=== PATIENT | female | born 1955 | race Caucasian/White ===

== ENCOUNTER 2021-02-17 12:40 | Outpatient (REF) | payer MEDICARE, MEDICAID, SELFPAY ==
[2021-02-17 13:55] LABS: MANUAL DIFF FLAG NO
[2021-02-17 14:01] LABS: Basophils Percent Auto 0.3 % (0-2); Eosinophils Absolute Auto 0.1 X10*3/uL (0.0-0.4); Hematocrit 43.5 % (37-47); Hemoglobin 14.9 g/dl (12.0-16.0); Imm Gran Abs Auto 0.04 X10*3/uL (0.00-0.03); Imm Gran Pct Auto 0.4 % (0.0-0.4); Lymphocytes Absolute Auto 1.6 X10*3/uL (1.2-4.9); Lymphocytes Percent Auto 14.1 % (20-40); Mean Corpuscular HGB Conc 34.3 g/dl (31.0-35.0); Mean Corpuscular Volume 90.4 fL (80-98); Monocytes Absolute Auto 0.7 X10*3/uL (0.1-1.2); Neutrophils Absolute Auto 8.6 X10*3/uL (2.0-8.3); Neutrophils Percent Auto 78.2 % (45-73); Platelet Count 331 X10*3/uL (160-400); Red Blood Count 4.81 X10*6/uL (4.20-5.50); Red Cell Distribution Width 13.8 % (11.0-16.0)
[2021-02-17 14:38] LABS: Alanine Aminotransferase 17 U/L (0-31); Albumin Level 4.2 g/dL (3.5-5.0); Alkaline Phosphatase 96 U/L (39-117); Anion Gap 13 (12-20); Aspartate Amino Transferase 17 U/L (5-31); Bilirubin Total 0.4 mg/dL (0.0-1.0); Blood Urea Nitrogen 19 mg/dL (9-16); Calcium 10.2 mg/dL (8.4-10.2); Carbon Dioxide 26 mmol/L (22-29); Chloride 106 mmol/L (96-108); Cholesterol 231 mg/dL; Estimated Average Glucose 131 mg/dL; Estimated Glomerular Filt Rate > 60; Glucose Random 87 mg/dL (60-115); HDL Cholesterol 56 mg/dL; Hemoglobin A1c % 6.2 %; LDL Cholesterol Calculated 144 mg/dl; Potassium 4.3 mmol/L (3.3-5.1); Sodium 141 mmol/L (135-145); Total Protein 6.9 g/dL (6.5-8.0); Triglycerides 158 mg/dL
[2021-02-17 14:43] LABS: Creatinine Urine 104.04 mg/dL; Microalbum/Creatinine Ratio Ur 29.7 ug/mg cr
[2021-02-18 10:11] LABS: LDL Cholesterol Direct 154 mg/dL (<100)
== END 2021-02-17 12:41 | disposition home or self-care (01) ==
LOC: HO.HMGCLDS 12:40
PROVIDERS: Internal Medicine; PCP Internal Medicine; Visit Provider Internal Medicine
DX: E11.40 Type 2 diabetes mellitus with diabetic neuropathy, unspecified (principal); E11.65 Type 2 diabetes mellitus with hyperglycemia; I10 Essential (primary) hypertension; J44.9 Chronic obstructive pulmonary disease, unspecified; K21.9 Gastro-esophageal reflux disease without esophagitis; Z99.81 Dependence on supplemental oxygen; Z79.4 Long term (current) use of insulin
CPT/HCPCS: 36415; 80053; 80061; 82043; 83036; 83721; 84443; 85025

== ENCOUNTER → 2021-08-04 11:45 | Outpatient (BNVA) | payer MEDICARE, MEDICAID, SELFPAY | PROVIDERS: PCP Internal Medicine; Visit Provider Internal Medicine | DX: E11.65 Type 2 diabetes mellitus with hyperglycemia (principal); E78.5 Hyperlipidemia, unspecified; I10 Essential (primary) hypertension; Z79.4 Long term (current) use of insulin | CPT/HCPCS: Q3014 ==

== ENCOUNTER 2022-01-11 14:28 | Outpatient (REF) | payer MEDICARE, MEDICAID, SELFPAY ==
[2022-01-11 16:49] LABS: Alanine Aminotransferase 17 U/L (0-31); Albumin Level 4.2 g/dL (3.5-5.0); Alkaline Phosphatase 106 U/L (39-117); Anion Gap 14 (12-20); Aspartate Amino Transferase 16 U/L (5-31); Bilirubin Total 0.4 mg/dL (0.0-1.0); Blood Urea Nitrogen 30 mg/dL (9-16); Calcium 9.7 mg/dL (8.4-10.2); Carbon Dioxide 24 mmol/L (22-29); Chloride 107 mmol/L (96-108); Cholesterol 232 mg/dL; Estimated Glomerular Filt Rate > 60; Glucose Random 108 mg/dL (60-115); HDL Cholesterol 52 mg/dL; LDL Cholesterol Calculated 132 mg/dl; Potassium 4.3 mmol/L (3.3-5.1); Sodium 141 mmol/L (135-145); Triglycerides 240 mg/dL
[2022-01-11 16:54] LABS: Estimated Average Glucose 117 mg/dL; Hemoglobin A1C 151.8127 umol/L; Hemoglobin A1c % 5.7 %
[2022-01-11 17:10] LABS: Vitamin D 25-OH Total 32.4 ng/mL (>30)
[2022-01-11 17:31] LABS: Creatinine Urine 74.16 mg/dL; Microalbum/Creatinine Ratio Ur 63.3 ug/mg cr
[2022-01-13 00:31] LABS: LDL Cholesterol Direct 152 mg/dL (<100)
== END 2022-01-11 14:29 | disposition home or self-care (01) ==
LOC: HO.HMGCLDS 14:28
PROVIDERS: PCP Internal Medicine; Visit Provider Internal Medicine
DX: E11.65 Type 2 diabetes mellitus with hyperglycemia (principal); E55.9 Vitamin D deficiency, unspecified; Z79.4 Long term (current) use of insulin
CPT/HCPCS: 36415; 80053; 80061; 82043; 82306; 83036; 83721

== ENCOUNTER → 2022-01-12 12:14 | Outpatient (BNVA) | payer MEDICARE, MEDICAID, SELFPAY | PROVIDERS: PCP Internal Medicine; Visit Provider Internal Medicine | DX: E11.65 Type 2 diabetes mellitus with hyperglycemia (principal); E78.5 Hyperlipidemia, unspecified; I10 Essential (primary) hypertension; Z79.4 Long term (current) use of insulin; Z79.899 Other long term (current) drug therapy | CPT/HCPCS: Q3014 ==

== ENCOUNTER → 2022-03-21 10:19 | Outpatient (BNVA) | payer MEDICARE, MEDICAID, SELFPAY | PROVIDERS: PCP Internal Medicine; Visit Provider Internal Medicine | DX: E11.65 Type 2 diabetes mellitus with hyperglycemia (principal); Z79.4 Long term (current) use of insulin; E78.5 Hyperlipidemia, unspecified; I10 Essential (primary) hypertension | CPT/HCPCS: Q3014 ==

== ENCOUNTER 2022-06-01 14:39 | Outpatient (REF) | payer MEDICARE, MEDICAID, SELFPAY ==
[2022-06-01 16:28] LABS: MANUAL DIFF FLAG NO
[2022-06-01 16:32] LABS: Basophils Absolute Auto 0.1 X10*3/uL (0.0-0.2); Basophils Percent Auto 0.6 % (0-2); Eosinophils Absolute Auto 0.2 X10*3/uL (0.0-0.4); Hematocrit 45.3 % (37.0-47.0); Hemoglobin 15.3 g/dl (12.0-16.0); Imm Gran Abs Auto 0.04 X10*3/uL (0.00-0.03); Imm Gran Pct Auto 0.4 % (0.0-0.4); Lymphocytes Absolute Auto 1.8 X10*3/uL (1.2-4.9); Lymphocytes Percent Auto 17.3 % (20-40); Mean Corpuscular HGB Conc 33.8 g/dl (31.0-35.0); Mean Corpuscular Hemoglobin 30.4 pg (27.0-33.0); Mean Corpuscular Volume 90.1 fL (80.0-98.0); Mean Platelet Volume 10.3 fL (9.4-12.3); Monocytes Absolute Auto 0.6 X10*3/uL (0.1-1.2); Monocytes Percent Auto 5.6 % (2-11); Neutrophils Absolute Auto 7.5 x10*3/uL (2.0-8.3); Neutrophils Percent Auto 74.1 % (45-73); Platelet Count 300 X10*3/uL (160-400); Red Blood Count 5.03 X10*6/uL (4.20-5.50); White Blood Count 10.2 X10*3/uL (4.8-10.8)
[2022-06-01 16:40] LABS: Estimated Average Glucose 111 mg/dL; Hemoglobin A1c % 5.5 %
[2022-06-01 16:44] LABS: Alanine Aminotransferase 21 U/L (0-31); Albumin Level 4.4 g/dL (3.5-5.0); Alkaline Phosphatase 106 U/L (39-117); Anion Gap 13 (12-20); Aspartate Amino Transferase 24 U/L (5-31); Bilirubin Total 0.4 mg/dL (0.0-1.0); Blood Urea Nitrogen 21 mg/dL (9-16); Calcium 10.2 mg/dL (8.4-10.2); Carbon Dioxide 30 mmol/L (22-29); Chloride 107 mmol/L (96-108); Estimated Glomerular Filt Rate > 60; Glucose Random 118 mg/dL (60-115); Potassium 4.7 mmol/L (3.3-5.1); Sodium 145 mmol/L (135-145); Total Protein 7.2 g/dL (6.5-8.0)
[2022-06-01 17:04] LABS: TSH reflex Free T4 1.32 uIU/mL (0.32-4.0)
[2022-06-02 17:17] LABS: LDL Cholesterol Direct 107 mg/dL (<100)
== END 2022-06-01 14:40 | disposition home or self-care (01) ==
LOC: HO.HMGCLDS 14:39
PROVIDERS: PCP Internal Medicine; Visit Provider Internal Medicine
DX: E11.40 Type 2 diabetes mellitus with diabetic neuropathy, unspecified (principal); E78.5 Hyperlipidemia, unspecified; F33.9 Major depressive disorder, recurrent, unspecified; I10 Essential (primary) hypertension; J44.9 Chronic obstructive pulmonary disease, unspecified; K21.9 Gastro-esophageal reflux disease without esophagitis; Z91.09 Other allergy status, other than to drugs and biological substances
CPT/HCPCS: 36415; 80053; 83036; 83721; 84443; 85025

== ENCOUNTER 2023-03-01 13:48 | Outpatient (AMB) | payer MEDICARE, MEDICAID, SELFPAY ==
--- NOTE | 2023-03-01 14:00 | A.OFFPC_ITS ---
Vital Signs 03/01/23 14:01 Height 5 ft Weight 146 lb BMI 28.5 BP 102/60 Blood Pressure Location Rt brachial Position Sitting Pulse 69 Pulse Source Pulse Oximeter Pulse Oximetry (%) 95 Oxygen Delivery Method Room Air Intake Visit Reasons: follow up DM Allergies lisinopril Allergy (Unknown, Verified 03/01/23 14:02) cough pravastatin Allergy (Unknown, Verified 03/01/23 14:02) muscle ache simvastatin Allergy (Unknown, Verified 03/01/23 14:02) myalgia Medication List - Last Reconciled 03/01/23 by Isabela Bautista MD aripiprazole 2 mg PO BEDTIME atorvastatin 40 mg PO DAILY blood sugar diagnostic (FreeStyle Lite Strips) patient to check fasting glucose three times daily bupropion HCl 150 mg PO BID carvedilol 12.5 mg PO BID 30 days fluticasone propionate 50 mcg/actuation (Allergy Relief (fluticasone)) 1 spray intranasal DAILY 30 days insulin degludec (Tresiba FlexTouch U-200 insulin) 50 units (0.25 mL) subcut DAILY ipratropium bromide 2 sprays intranasal TID-QID PRN 30 days losartan 50 mg PO DAILY 90 days multivitamin 1 tab PO DAILY omeprazole 20 mg PO DAILY 90 days pen needle, diabetic (BD Sarina 2nd Gen Pen Needle) once a day pen needle, diabetic once a day pregabalin 225 mg PO BID 30 days sertraline 100 mg PO QAM Tobacco use date assessed: 03/01/23 Fall risk assessment: No Falls in past year Last assessed Fall Risk: 03/01/23 Dental Screening Dental Screen Date: 03/01/23 Did you have a dental visit in the last 12 months?: No Was dental information given to patient?: No HPI follow up DM HPI Details Patient is 68-year-old female came in today for her follow-up appointment last time seen was September of this year patient was supposed to come in in 3 months but did not No labs on file since 2021 I have placed an order for her she is to do them today. Complaining of feeling dizzy when she wakes up in the morning and if she moves fast I have sent meclizine 12.5 mg that she can take b.i.d. She has an appointment with Dr. Sharma endocrinology May 02 for the management of uncontrolled diabetes mellitus? Patient has COPD but her breathing is at baseline Blood pressure is stable with losartan 50 mg and carvedilol 12.5 mg b.i.d., Psychiatric care through Psychiatry Patient is on atorvastatin 40 mg daily for lipid control Fibromyalgia and diabetic neuropathy, patient is on Lyrica 225 mg 2 times a day, patient was notified this is a controlled medication and will need 3 month follow-up visit for refill Patient is walker dependent Follow-up 3 months ? ?? PFSH Medical History Chronic GERD COPD, severe Depression, major, recurrent Diabetic neuropathy Environmental allergies History of pancreatitis HLD (hyperlipidemia) HTN (hypertension) Osteopenia T2DM (type 2 diabetes mellitus) Vitamin D deficiency Surgical History Hx of hysterectomy Family History Mother CVA (cerebral vascular accident) T2DM (type 2 diabetes mellitus) Father No problems noted. Brother No problems noted. Brother No problems noted. Brother No problems noted. Sister No problems noted. Sister No problems noted. Sister No problems noted. Sister No problems noted. Daughter No problems noted. Daughter No problems noted. Social History Housing: Apartment Alcohol intake: former Patient Tobacco Use Status: Former Tobacco user Cigarette Packs Per Day: 1 Years Smoked: 40 e-Cigarette/Vaping Use: Never Used service: No Current occupational status: retired Cognitive needs: No Hearing needs: No Vision needs: Yes Questionnaire PHQ-9 Over the last 2 weeks, how often have you been bothered by any of the following problems? 1. Little interest or pleasure in doing things: several days 2. Feeling down, depressed, or hopeless: several days 3. Trouble falling or staying asleep, or sleeping too much: several days 4. Feeling tired or having little energy: several days 5. Poor appetite or overeating: several days 6. Feeling bad about yourself - or that you are a failure or have let yourself or your family down: not at all 7. Trouble concentrating on things, such as reading the newspaper or watching television: several days 8. Moving or speaking so slowly that other people could have noticed. Or the opposite - being so fidgety or restless that you have been moving around a lot more than usual: several days 9. Thoughts that you would be better off or of hurting yourself in some way: not at all Total score: 7 Depression Screening Interpretation: Positive 52110 - PHQ-9 Billing: Yes Source: Developed by Drs. Nael Connelly, Jade Hinojosa, Lance Lizarraga and colleagues, with an educational kush from [employer]. Thrive Questionnaire Date Thrive assessed: 03/01/23 I am a: Patient What is your living situation today?: I have a steady place to live Within the past 12 months, did the food you bought not last and you didn't have the money to get more?: Never true Within the past 12 months, did you worry whether your food would run out before you got money to buy more?: Never true Do you have trouble paying for medicines?: No Do you have trouble getting transportation to medical appointments?: No Do you have trouble paying your heating and electricity bill?: No Do you have trouble taking care of your child, family member or friend?: No Do you have trouble with day-to-day activities such as bathing, preparing meals, shopping, managing finances, etc.?: No Are you currently unemployed and looking for a job?: No Are you interested in more education?: No VIRGILIO-7 AMB Questionnaire VIRGILIO-7 Date VIRGILIO - 7 assessed: 03/01/23 Feeling nervous, anxious, or on edge: 1 = Several days Not being able to stop or control worryin = Several days Worrying too much about different things: 0 = Not at all Trouble relaxin = Several days Being so restless that it is hard to sit still: 1 = Several days Becoming easily annoyed or irritable: 1 = Several days Feeling afraid as if something awful might happen: 0 = Not at all Total VIRGILIO-7 score (0-4 normal; 5-9 mild; 10-14 moderate; 15-21 severe): 5 Source: Developed by Drs. Nael Connelly, Jade Hinojosa, Lance Lizarraga and colleagues, with an educational kush from [employer]. Review of Systems Const Denies chills and Denies fever(s) ENT Denies epistaxis and Denies nasal discharge Card Denies chest pain Resp Denies chest congestion, Denies cough and Denies hemoptysis GI Denies diarrhea and Denies nausea Skin/Breast Denies rash Neuro Reports no additional complaints Psych Reports no additional complaints Endo Reports no additional complaints Physical exam (Primary Care) Vital Signs: Last Vital Signs Pulse 69 03/01/23 14:01 BP 102/60 03/01/23 14:01 Pulse Ox 95 03/01/23 14:01 Oxygen Delivery Method Room Air 03/01/23 14:01 BMI result Body Mass Index 28.5 Tobacco/Smoking Status: Tobacco use Status Tobacco use date assessed 03/01/23 03/01/23 14:07 Patient Tobacco Use Status Former Tobacco user 03/01/23 14:01 e-Cigarette/Vaping Use Never Used 03/01/23 14:01 PHQ-9: PHQ-9 Score PHQ-9: Total score 7 03/01/23 14:08 Depression Screening Interpretation: Positive Thrive Assessment: Date of Thrive Assessment Date Thrive assessed 03/01/23 03/01/23 14:07 Const General: cooperative, comfortable and no acute distress Orientation/consciousness: patient oriented x3 HENMT Head: Yes normocephalic Eyes General: appearance normal, both eyes and all related structures Neck Neck: Yes supple Resp Effort & Inspection: normal respiratory effort, no cough and no stridor Cardio Rhythm: regular rhythm Heart sounds: S1 normal heart sound present and S2 normal heart sound present Skin General skin exam: turgor normal Neuro Other: Walker dependent General: patient oriented x3, tone normal and moves all extremities Extrem Right lower extremity: no edema Left lower extremity: no edema Assessment and Plan Assessment & Plan (1) T2DM (type 2 diabetes mellitus): Code(s): E11.9 - Type 2 diabetes mellitus without complications Qualifiers: Diabetes mellitus complication status: with hyperglycemia Diabetes mellitus continuous churn buttermaker insulin use: with continuous churn buttermaker use Qualified Code(s): E11.65 - Type 2 diabetes mellitus with hyperglycemia; Z79.4 - USP (current) use of insulin (2) HTN (hypertension): Code(s): I10 - Essential (primary) hypertension Qualifiers: Hypertension type: primary hypertension Qualified Code(s): I10 - Essential (primary) hypertension (3) COPD, severe: Code(s): J44.9 - Chronic obstructive pulmonary disease, unspecified (4) Diabetic neuropathy: Code(s): E11.40 - Type 2 diabetes mellitus with diabetic neuropathy, unspecified Qualifiers: Diabetes mellitus complication detail: diabetic polyneuropathy Diabetes mellitus type: type 1 Qualified Code(s): E10.42 - Type 1 diabetes mellitus with diabetic polyneuropathy (5) Chronic GERD: Code(s): K21.9 - Gastro-esophageal reflux disease without esophagitis (6) Depression, major, recurrent: Code(s): F33.9 - Major depressive disorder, recurrent, unspecified Plan Patient is 68-year-old female came in today for her follow-up appointment last time seen was September of this year patient was supposed to come in in 3 months but did not No labs on file since 2021 I have placed an order for her she is to do them today. Complaining of feeling dizzy when she wakes up in the morning and if she moves fast I have sent meclizine 12.5 mg that she can take b.i.d. She has an appointment with Dr. Sharma endocrinology May 02 for the manage ment of uncontrolled diabetes mellitus? Patient has COPD but her breathing is at baseline Blood pressure is stable with losartan 50 mg and carvedilol 12.5 mg b.i.d., Psychiatric care through Psychiatry Patient is on atorvastatin 40 mg daily for lipid control Fibromyalgia and diabetic neuropathy, patient is on Lyrica 225 mg 2 times a day, patient was notified this is a controlled medication and will need 3 month follow-up visit for refill Patient is walker dependent Follow-up 3 months ? ?? Orders: Orders Comprehensive Met. Panel Today E11.40 - Type 2 diabetes mellitus with diabetic neuropathy, unspecified, E11.9 - Type 2 diabetes mellitus without complications, F33.9 - Major depressive disorder, recurrent, unspecified, I10 - Essential (primary) hypertension, J44.9 - Chronic obstructive pulmonary disease, unspecified, K21.9 - Gastro-esophageal reflux disease without esophagitis Hemoglobin A1c Today E11.40 - Type 2 diabetes mellitus with diabetic neuropathy, unspecified, E11.9 - Type 2 diabetes mellitus without complications, F33.9 - Major depressive disorder, recurrent, unspecified, I10 - Essential (primary) hypertension, J44.9 - Chronic obstructive pulmonary disease, unspecified, K21.9 - Gastro-esophageal reflux disease without esophagitis LDL Cholesterol Direct Today E11.40 - Type 2 diabetes mellitus with diabetic neuropathy, unspecified, E11.9 - Type 2 diabetes mellitus without complications, F33.9 - Major depressive disorder, recurrent, unspecified, I10 - Essential (primary) hypertension, J44.9 - Chronic obstructive pulmonary disease, unspecified, K21.9 - Gastro-esophageal reflux disease without esophagitis TSH reflex Free T4 Today E11.40 - Type 2 diabetes mellitus with diabetic neuropathy, unspecified, E11.9 - Type 2 diabetes mellitus without complications, F33.9 - Major depressive disorder, recurrent, unspecified, I10 - Essential (primary) hypertension, J44.9 - Chronic obstructive pulmonary disease, unspecified, K21.9 - Gastro-esophageal reflux disease without esophagitis Complete Blood Count Auto Diff Today E11.40 - Type 2 diabetes mellitus with diabetic neuropathy, unspecified, E11.9 - Type 2 diabetes mellitus without complications, F33.9 - Major depressive disorder, recurrent, unspecified, I10 - Essential (primary) hypertension, J44.9 - Chronic obstructive pulmonary disease, unspecified, K21.9 - Gastro-esophageal reflux disease without esophagitis Medications: New meclizine After breakfast and after supper 12.5 mg PO BID PRN 30 tabs 0RF dizziness 15 days Coding Level of Care Code Est Pt Level 4 (91340) Diagnoses T2DM (type 2 diabetes mellitus) E11.65; Z79.4 Diabetes mellitus complication status: with hyperglycemia Diabetes mellitus continuous churn buttermaker insulin use: with continuous churn buttermaker use HTN (hypertension) I10 Hypertension type: primary hypertension COPD, severe J44.9 Diabetic neuropathy E10.42 Diabetes mellitus complication detail: diabetic polyneuropathy Diabetes mellitus type: type 1 Chronic GERD K21.9 Depression, major, recurrent F33.9
[2023-03-01 14:01] VITALS: BP 102/60; PULSE 69; O2SAT 95; BMI 28.5
== END 2023-03-01 14:35 | disposition home or self-care (01) ==
PROVIDERS: PCP Internal Medicine; Visit Provider Internal Medicine
DX: E11.65 Type 2 diabetes mellitus with hyperglycemia (principal); Z79.4 Long term (current) use of insulin; I10 Essential (primary) hypertension; J44.9 Chronic obstructive pulmonary disease, unspecified; E10.42 Type 1 diabetes mellitus with diabetic polyneuropathy; K21.9 Gastro-esophageal reflux disease without esophagitis; F33.9 Major depressive disorder, recurrent, unspecified
CPT/HCPCS: 99214

== ENCOUNTER 2023-03-01 14:32 | Outpatient (REF) | payer MEDICARE, MEDICAID, SELFPAY ==
[2023-03-01 16:14] LABS: Basophils Percent Auto 0.4 % (0-2); Eosinophils Absolute Auto 0.1 X10*3/uL (0.0-0.4); Eosinophils Percent Auto 1.5 % (0-4); Hematocrit 43.4 % (37.0-47.0); Hemoglobin 14.7 g/dl (12.0-16.0); Imm Gran Abs Auto 0.04 X10*3/uL (0.00-0.03); Imm Gran Pct Auto 0.4 % (0.0-0.4); Lymphocytes Absolute Auto 1.7 X10*3/uL (1.2-4.9); Lymphocytes Percent Auto 18.1 % (20-40); MANUAL DIFF FLAG NO; Mean Corpuscular HGB Conc 33.9 g/dl (31.0-35.0); Mean Corpuscular Hemoglobin 30.2 pg (27.0-33.0); Mean Corpuscular Volume 89.1 fL (80.0-98.0); Mean Platelet Volume 10.2 fL (9.4-12.3); Monocytes Absolute Auto 0.7 X10*3/uL (0.1-1.2); Monocytes Percent Auto 7.5 % (2-11); Neutrophils Absolute Auto 6.6 x10*3/uL (2.0-8.3); Neutrophils Percent Auto 72.1 % (45-73); Platelet Count 265 X10*3/uL (160-400); Red Blood Count 4.87 X10*6/uL (4.20-5.50); Red Cell Distribution Width 12.6 % (11.0-16.0); White Blood Count 9.2 X10*3/uL (4.8-10.8)
[2023-03-01 16:23] LABS: Estimated Average Glucose 111 mg/dL; Hemoglobin A1c % 5.5 %
[2023-03-01 16:34] LABS: Alanine Aminotransferase 16 U/L (0-31); Albumin Level 4.1 g/dL (3.5-5.0); Alkaline Phosphatase 114 U/L (39-117); Anion Gap 15 (12-20); Aspartate Amino Transferase 17 U/L (5-31); Bilirubin Total 0.4 mg/dL (0.0-1.0); Blood Urea Nitrogen 25 mg/dL (9-16); Calcium 9.9 mg/dL (8.4-10.2); Carbon Dioxide 23 mmol/L (22-29); Chloride 110 mmol/L (96-108); Estimated Glomerular Filt Rate > 60; Glucose Random 110 mg/dL (60-115); Potassium 4.4 mmol/L (3.3-5.1); Sodium 144 mmol/L (135-145)
[2023-03-02 23:48] LABS: LDL Cholesterol Direct 105 mg/dL (<100)
== END 2023-03-01 14:33 | disposition home or self-care (01) ==
LOC: HO.HMGCLDS 14:32
PROVIDERS: PCP Internal Medicine; Visit Provider Internal Medicine
DX: E11.40 Type 2 diabetes mellitus with diabetic neuropathy, unspecified (principal); F33.9 Major depressive disorder, recurrent, unspecified; I10 Essential (primary) hypertension; J44.9 Chronic obstructive pulmonary disease, unspecified; K21.9 Gastro-esophageal reflux disease without esophagitis
CPT/HCPCS: 36415; 80053; 83036; 83721; 84443; 85025

== ENCOUNTER 2023-06-02 13:44 | Outpatient (AMB) | payer MEDICARE, MEDICAID, SELFPAY ==
[2023-06-02 13:48] VITALS: BP 122/74; PULSE 58; O2SAT 95; BMI 30.7
--- NOTE | 2023-06-02 13:48 | MHC.PC.OV ---
Vital Signs 06/02/23 13:48 Height 5 ft Weight 157 lb 6 oz BMI 30.7 BP 122/74 Blood Pressure Location Rt brachial Position Sitting Pulse 58 Pulse Source Pulse Oximeter Pulse Oximetry (%) 95 Oxygen Delivery Method Room Air Intake Visit Reasons: 3 month follow up Allergies lisinopril Allergy (Unknown, Verified 06/02/23 13:50) cough pravastatin Allergy (Unknown, Verified 06/02/23 13:50) muscle ache simvastatin Allergy (Unknown, Verified 06/02/23 13:50) myalgia Medication List - Last Reconciled 06/02/23 by Isabela Bautista MD aripiprazole 2 mg PO BEDTIME atorvastatin 40 mg PO DAILY blood sugar diagnostic (FreeStyle Lite Strips) patient to check fasting glucose three times daily bupropion HCl 150 mg PO BID carvedilol 12.5 mg PO BID 30 days fluticasone propionate 50 mcg/actuation (Allergy Relief (fluticasone)) 1 spray intranasal DAILY 30 days ipratropium bromide 2 sprays intranasal TID-QID PRN 30 days losartan 50 mg PO DAILY 90 days meclizine 12.5 mg PO BID PRN 15 days multivitamin 1 tab PO DAILY omeprazole 20 mg PO DAILY 90 days pen needle, diabetic (BD Sarina 2nd Gen Pen Needle) once a day pen needle, diabetic once a day pregabalin 225 mg PO BID 90 days sertraline 100 mg PO QAM Tresiba FlexTouch U-200 (insulin degludec) 50 units (0.25 mL) subcut DAILY NS Tobacco use date assessed: 06/02/23 Fall risk assessment: No Falls in past year Last assessed Fall Risk: 06/02/23 Dental Screening Dental Screen Date: 06/02/23 Did you have a dental visit in the last 12 months?: No Did you have a dental problem in the last 6 months where you did not have access to dental care?: No Was dental information given to patient?: Patient declined HPI 3 month follow up HPI Details Patient is a 68 year female came in today to be evaluated respiratory tract infection Patient have COPD and has been sick for the past 10 days with chest congestion and cough Patient says that the cough was so bad that now she has pain left lower rib which hurts when she takes a deep breath. On examination her lungs are clear I have ordered chest x-ray to evaluate for possible rib fracture I am treating her with azithromycin and codeine cough syrup She may take 1 tsp every 8 hour as needed for cough it will help her with the pain as well. Patient is to return in 10 days for re-evaluation. [facility] Medical History Depression, major, recurrent Chronic GERD Environmental allergies Diabetic neuropathy COPD, severe Osteopenia Vitamin D deficiency History of pancreatitis HLD (hyperlipidemia) HTN (hypertension) T2DM (type 2 diabetes mellitus) Surgical History Hx of hysterectomy Family History Mother CVA (cerebral vascular accident) T2DM (type 2 diabetes mellitus) Father No problems noted. Brother No problems noted. Brother No problems noted. Brother No problems noted. Sister No problems noted. Sister No problems noted. Sister No problems noted. Sister No problems noted. Daughter No problems noted. Daughter No problems noted. Social History Housing: Apartment Alcohol intake: former Patient Tobacco Use Status: Former Tobacco user Cigarette Packs Per Day: 1 Years Smoked: 40 e-Cigarette/Vaping Use: Never Used service: No Current occupational status: retired Cognitive needs: No Hearing needs: No Vision needs: Yes Questionnaire Thrive Questionnaire Date Thrive assessed: 03/01/23 AUDIT C Alcohol Use Questionnaire (AUDIT-C) 1. How often do you have a drink containing alcohol?: Never 3. How often do you have six or more drinks on one occasion?: Never Total Score: 0 Score Reviewed/Action Taken: Yes VIRGILIO-7 AMB Questionnaire VIRGILIO-7 Date VIRGILIO - 7 assessed: 03/01/23 Source: Developed by Drs. Nael Connelly, Jade Hinojosa, Lance Lizarraga and colleagues, with an educational kush from [employer]. Review of Systems Const Denies chills and Denies fever(s) ENT Denies epistaxis and Denies nasal discharge Card Denies chest pain Resp Denies hemoptysis GI Denies diarrhea and Denies nausea Skin/Breast Denies rash Neuro Reports no additional complaints Psych Reports no additional complaints Endo Reports no additional complaints Physical exam (Primary Care) Vital Signs: Last Vital Signs Pulse 58 06/02/23 13:48 BP 122/74 06/02/23 13:48 Pulse Ox 95 06/02/23 13:48 Oxygen Delivery Method Room Air 06/02/23 13:48 BMI result Body Mass Index 30.7 Tobacco/Smoking Status: Tobacco use Status Tobacco use date assessed 06/02/23 06/02/23 13:51 Patient Tobacco Use Status Former Tobacco user 06/02/23 13:51 e-Cigarette/Vaping Use Never Used 06/02/23 13:51 Thrive Assessment: Date of Thrive Assessment Date Thrive assessed 03/01/23 06/02/23 13:51 Const General: cooperative, comfortable and no acute distress Orientation/consciousness: patient oriented x3 HENMT Head: Yes normocephalic Eyes General: appearance normal, both eyes and all related structures Neck Neck: Yes supple Resp Effort & Inspection: normal respiratory effort, no cough and no stridor Cardio Rhythm: regular rhythm Heart sounds: S1 normal heart sound present and S2 normal heart sound present Skin General skin exam: turgor normal Neuro General: patient oriented x3, tone normal and moves all extremities Extrem Right lower extremity: no edema Left lower extremity: no edema Assessment and Plan Assessment & Plan (1) Non-cardiac chest pain: Code(s): R07.89 - Other chest pain (2) COPD, severe: Code(s): J44.9 - Chronic obstructive pulmonary disease, unspecified (3) Acute bronchitis: Code(s): J20.9 - Acute bronchitis, unspecified Qualifiers: Bronchitis organism: other organism Qualified Code(s): J20.8 - Acute bronchitis due to other specified organisms Plan Patient is a 68 year female came in today to be evaluated respiratory tract infection Patient have COPD and has been sick for the past 10 days with chest congestion and cough Patient says that the cough was so bad that now she has pain left lower rib which hurts when she takes a deep breath. On examination her lungs are clear I have ordered chest x-ray to evaluate for possible rib fracture I am treating her with azithromycin and codeine cough syrup She may take 1 tsp every 8 hour as needed for cough it will help her with the pain as well. Patient is to return in 10 days for re-evaluation. Medications: New azithromycin Take 2 tablets today then 1 daily 250 mg PO ONCE 6 tabs 0RF 5 days J06.9 - Acute upper respiratory infection, unspecified codeine-guaifenesin 10-100 mg/5 mL 5 mL PO .tid PRN 120 mL 0RF cough 10 days Coding Level of Care Code Est Pt Level 4 (61549) Diagnoses Non-cardiac chest pain R07.89 COPD, severe J44.9 Acute bronchitis due to other specified organisms J20.8 Bronchitis organism: other organism
== END 2023-06-02 14:01 | disposition home or self-care (01) ==
PROVIDERS: PCP Internal Medicine; Visit Provider Internal Medicine
DX: R07.89 Other chest pain (principal); J44.9 Chronic obstructive pulmonary disease, unspecified; J20.8 Acute bronchitis due to other specified organisms
CPT/HCPCS: 99214

== ENCOUNTER 2023-06-02 14:02 | Outpatient (REF) | payer MEDICARE, MEDICAID, SELFPAY ==
--- NOTE | ~2023-06-02 | XR_ITS ---
EXAMINATION: XR RIBS, LEFT CLINICAL INFORMATION: Chest pain COMPARISON: None available. TECHNIQUE: Left rib cage 3 views and single view of the chest in PA projections FINDINGS: Lungs are clear, cardiomediastinal silhouette is normal. There is no evidence of pleural effusion or pneumothorax. Visualized hips are intact. There is no fracture seen. XR/XR ribs LT min 3V w CXR1V IMPRESSION: Unremarkable examination.
== END 2023-06-02 14:03 | disposition home or self-care (01) ==
LOC: HO.HMGCX 14:02
PROVIDERS: PCP Internal Medicine; Visit Provider Internal Medicine
DX: R07.89 Other chest pain (principal)
CPT/HCPCS: 71101

== ENCOUNTER 2023-06-16 11:56 | Outpatient (AMB) | payer MEDICARE, MEDICAID, SELFPAY ==
--- NOTE | 2023-06-16 11:54 | MHC.PC.OV ---
Intake Visit Reasons: 2 Week Follow Up [phone] Allergies lisinopril Allergy (Unknown, Verified 06/16/23 11:55) cough pravastatin Allergy (Unknown, Verified 06/16/23 11:55) muscle ache simvastatin Allergy (Unknown, Verified 06/16/23 11:55) myalgia Medication List - Last Reconciled 06/16/23 by Isabela Bautista MD aripiprazole 2 mg PO BEDTIME atorvastatin 40 mg PO DAILY blood sugar diagnostic (FreeStyle Lite Strips) patient to check fasting glucose three times daily bupropion HCl 150 mg PO BID carvedilol 12.5 mg PO BID 30 days codeine-guaifenesin 10-100 mg/5 mL 5 mL PO .tid PRN 10 days fluticasone propionate 50 mcg/actuation (Allergy Relief (fluticasone)) 1 spray intranasal DAILY 30 days ipratropium bromide 2 sprays intranasal TID-QID PRN 30 days losartan 50 mg PO DAILY 90 days meclizine 12.5 mg PO BID PRN 15 days multivitamin 1 tab PO DAILY omeprazole 20 mg PO DAILY 90 days pen needle, diabetic (BD Sarina 2nd Gen Pen Needle) once a day pen needle, diabetic once a day pregabalin 225 mg PO BID 90 days sertraline 100 mg PO QAM Tresiba FlexTouch U-200 (insulin degludec) 50 units (0.25 mL) subcut DAILY NS Ventolin HFA 90 mcg/actuation (albuterol sulfate) 1 inh inhalation QID PRN 30 days NS Tobacco use date assessed: 06/16/23 Fall risk assessment: No Falls in past year Last assessed Fall Risk: 06/16/23 Dental Screening Dental Screen Date: 06/16/23 Did you have a dental visit in the last 12 months?: No Did you have a dental problem in the last 6 months where you did not have access to dental care?: No Was dental information given to patient?: No HPI 2 Week Follow Up [phone] HPI Details Patient is 68-year-old female this is a tele medicine conference To follow-up on acute bronchitis Patient was treated with antibiotic And codeine cough syrup Chest x-ray was ordered which did not show any lump process or rib fracture Patient says that she is feeling much better her cough has improved but still have dry lingering cough She is using inhaler which is helping her [facility] Medical History Depression, major, recurrent Chronic GERD Environmental allergies Diabetic neuropathy COPD, severe Osteopenia Vitamin D deficiency History of pancreatitis HLD (hyperlipidemia) HTN (hypertension) T2DM (type 2 diabetes mellitus) Surgical History Hx of hysterectomy Family History Mother CVA (cerebral vascular accident) T2DM (type 2 diabetes mellitus) Father No problems noted. Brother No problems noted. Brother No problems noted. Brother No problems noted. Sister No problems noted. Sister No problems noted. Sister No problems noted. Sister No problems noted. Daughter No problems noted. Daughter No problems noted. Social History Housing: Apartment Alcohol intake: former Patient Tobacco Use Status: Former Tobacco user Cigarette Packs Per Day: 1 Years Smoked: 40 Packs Per Year: 40 e-Cigarette/Vaping Use: Never Used service: No Current occupational status: retired Cognitive needs: No Hearing needs: No Vision needs: Yes Questionnaire Thrive Questionnaire Date Thrive assessed: 03/01/23 AUDIT C Alcohol Use Questionnaire (AUDIT-C) 1. How often do you have a drink containing alcohol?: Never 3. How often do you have six or more drinks on one occasion?: Never Total Score: 0 Score Reviewed/Action Taken: Yes VIRGILIO-7 AMB Questionnaire VIRGILIO-7 Date VIRGILIO - 7 assessed: 03/01/23 Source: Developed by Drs. Nael Connelly, Jade Hinojosa, Lance Lizarraag and colleagues, with an educational kush from [employer]. Review of Systems Const Denies chills and Denies fever(s) ENT Denies epistaxis and Denies nasal discharge Card Denies chest pain Resp Denies chest congestion and Denies hemoptysis GI Denies diarrhea and Denies nausea Skin/Breast Denies rash Neuro Reports no additional complaints Psych Reports no additional complaints Endo Reports no additional complaints Physical exam (Primary Care) Tobacco/Smoking Status: Tobacco use Status Tobacco use date assessed 06/16/23 06/16/23 11:55 Patient Tobacco Use Status Former Tobacco user 06/16/23 11:55 e-Cigarette/Vaping Use Never Used 06/16/23 11:55 Thrive Assessment: Date of Thrive Assessment Date Thrive assessed 03/01/23 06/16/23 11:55 Const General: cooperative, comfortable and no acute distress Orientation/consciousness: patient oriented x3 HENMT Head: Yes normocephalic Eyes General: appearance normal, both eyes and all related structures Neck Neck: Yes supple Resp Effort & Inspection: normal respiratory effort, no cough and no stridor Cardio Rhythm: regular rhythm Heart sounds: S1 normal heart sound present and S2 normal heart sound present Skin General skin exam: turgor normal Neuro General: patient oriented x3, tone normal and moves all extremities Extrem Right lower extremity: no edema Left lower extremity: no edema Telehealth Telehealth Location of provider rendering services: practice address Location of patient: address on file Patient Identification confirmed using: Name, : Yes Telehealth method: voice only Patient verbally consented to treatment: Yes Patient verbally consented to billing insurance company: Yes Patient informed of any privacy concerns related to visit: Yes Minutes spent on Phone/Video with Pt.: 11 Assessment and Plan Assessment & Plan (1) Acute bronchitis: Code(s): J20.9 - Acute bronchitis, unspecified Qualifiers: Bronchitis organism: other organism Qualified Code(s): J20.8 - Acute bronchitis due to other specified organisms (2) COPD, severe: Code(s): J44.9 - Chronic obstructive pulmonary disease, unspecified Plan Patient is 68-year-old female this is a tele medicine conference To follow-up on acute bronchitis Patient was treated with antibiotic And codeine cough syrup Chest x-ray was ordered which did not show any lump process or rib fracture Patient says that she is feeling much better her cough has improved but still have dry lingering cough She is using inhaler which is helping her Coding Level of Care Code Tele Est Pt Level 3 (59831) Diagnoses Acute bronchitis due to other specified organisms J20.8 Bronchitis organism: other organism COPD, severe J44.9
== END 2023-06-16 12:28 | disposition home or self-care (01) ==
LOC: HO.HMGC 11:56
PROVIDERS: PCP Internal Medicine; Visit Provider Internal Medicine
DX: J20.8 Acute bronchitis due to other specified organisms (principal); J44.9 Chronic obstructive pulmonary disease, unspecified
CPT/HCPCS: 99442

== ENCOUNTER 2023-08-31 07:56 | Outpatient (AMB) | payer OTHER, SELFPAY ==
--- NOTE | 2023-08-31 07:57 | A.OFFPC_ITS ---
Intake Visit Reasons: Med Refill~[phone] Allergies lisinopril Allergy (Unknown, Verified 08/31/23 07:59) cough pravastatin Allergy (Unknown, Verified 08/31/23 07:59) muscle ache simvastatin Allergy (Unknown, Verified 08/31/23 07:59) myalgia Medication List - Last Reconciled 08/31/23 by Isabela Bautista MD aripiprazole 2 mg PO BEDTIME atorvastatin 40 mg PO DAILY blood sugar diagnostic (FreeStyle Lite Strips) patient to check fasting glucose three times daily bupropion HCl 150 mg PO BID carvedilol 12.5 mg PO BID 30 days losartan 50 mg PO DAILY 90 days meclizine 12.5 mg PO BID PRN 15 days multivitamin 1 tab PO DAILY omeprazole 20 mg PO DAILY 90 days pen needle, diabetic (BD Sarina 2nd Gen Pen Needle) once a day pen needle, diabetic once a day pregabalin 225 mg PO BID 90 days sertraline 100 mg PO QAM Tresiba FlexTouch U-200 (insulin degludec) 50 units (0.25 mL) subcut DAILY NS Ventolin HFA 90 mcg/actuation (albuterol sulfate) 1 inh inhalation QID PRN 30 days NS Tobacco use date assessed: 08/31/23 Fall risk assessment: No Falls in past year Last assessed Fall Risk: 08/31/23 Dental Screening Dental Screen Date: 08/31/23 Did you have a dental visit in the last 12 months?: Yes Did you have a dental problem in the last 6 months where you did not have access to dental care?: No Was dental information given to patient?: Patient has dentist HPI Med Refill~[phone] HPI Details Patient is 68-year-old female with a history of diabetes mellitus is, difficulty walking, weakness in leg, diabetic neuropathy, lipid disorder, hypertension, irritable bowel syndrome makes, chronic nausea, obesity, bipolar disorder, depression, chronic GERD, anxiety, insulin-dependent Missed her regular follow-up appointment We set up a telemedicine so we can fill her medication She is due for labs as well, order placed patient notified She is requesting refill on Lyrica, something for nausea and constipation She tells me that she get constipation followed by diarrhea, initially patient was requesting Senokot but instead I am sending MiraLax explained to her that MiraLax is better in irritability bowel. She is to take it mixed in tall glass of liquid daily. Patient use assisted device to walk, currently she has a Rollator, she is requesting arm bath seat and also of walker She tells me when she has doctor's appointments it is difficult for her to bring her Rollator with her Medication list reviewed She has Medicare wellness visit in 1 week We will set up follow-up in 3 months [facility] Medical History Depression, major, recurrent Chronic GERD Environmental allergies Diabetic neuropathy COPD, severe Osteopenia Vitamin D deficiency History of pancreatitis HLD (hyperlipidemia) HTN (hypertension) T2DM (type 2 diabetes mellitus) Surgical History Hx of hysterectomy Family History Mother CVA (cerebral vascular accident) T2DM (type 2 diabetes mellitus) Father No problems noted. Brother No problems noted. Brother No problems noted. Brother No problems noted. Sister No problems noted. Sister No problems noted. Sister No problems noted. Sister No problems noted. Daughter No problems noted. Daughter No problems noted. Social History Housing: Apartment Alcohol intake: former Patient Tobacco Use Status: Former Tobacco user Cigarette Packs Per Day: 1 Years Smoked: 40 Packs Per Year: 40 e-Cigarette/Vaping Use: Never Used service: No Current occupational status: retired Cognitive needs: No Hearing needs: No Vision needs: Yes Questionnaire Thrive Questionnaire Date Thrive assessed: 03/01/23 AUDIT C Alcohol Use Questionnaire (AUDIT-C) 1. How often do you have a drink containing alcohol?: Never 3. How often do you have six or more drinks on one occasion?: Never Total Score: 0 Score Reviewed/Action Taken: Yes VIRGILIO-7 AMB Questionnaire VIRGILIO-7 Date VIRGILIO - 7 assessed: 03/01/23 Source: Developed by Drs. Nael Connelly, Jade Hinojosa, Lance Lizarraga and colleagues, with an educational kush from [employer]. Review of Systems Const Denies chills and Denies fever(s) ENT Denies epistaxis and Denies nasal discharge Card Denies chest pain Resp Denies chest congestion, Denies cough and Denies hemoptysis GI Denies diarrhea and Denies nausea Skin/Breast Denies rash Neuro Reports no additional complaints Psych Reports no additional complaints Endo Reports no additional complaints Physical exam (Primary Care) Tobacco/Smoking Status: Tobacco use Status Tobacco use date assessed 08/31/23 08/31/23 07:59 Patient Tobacco Use Status Former Tobacco user 08/31/23 07:59 e-Cigarette/Vaping Use Never Used 08/31/23 07:59 Thrive Assessment: Date of Thrive Assessment Date Thrive assessed 03/01/23 08/31/23 07:59 Telehealth Telehealth Location of provider rendering services: practice address Location of patient: address on file Patient Identification confirmed using: Name, : Yes Telehealth method: voice only Patient verbally consented to treatment: Yes Patient verbally consented to billing insurance company: Yes Patient informed of any privacy concerns related to visit: Yes Assessment and Plan Assessment & Plan (1) Gait disturbance: Code(s): R26.9 - Unspecified abnormalities of gait and mobility (2) Depression, major, recurrent: Code(s): F33.9 - Major depressive disorder, recurrent, unspecified Qualifiers: Active/Remission status: in partial remission Qualified Code(s): F33.41 - Major depressive disorder, recurrent, in partial remission (3) Chronic GERD: Code(s): K21.9 - Gastro-esophageal reflux disease without esophagitis (4) Environmental allergies: Code(s): Z91.09 - Other allergy status, other than to drugs and biological substances (5) Diabetic neuropathy: Code(s): E11.40 - Type 2 diabetes mellitus with diabetic neuropathy, unspecified Qualifiers: Diabetes mellitus complication detail: diabetic polyneuropathy Diabetes mellitus type: type 1 Qualified Code(s): E10.42 - Type 1 diabetes mellitus with diabetic polyneuropathy (6) COPD, severe: Code(s): J44.9 - Chronic obstructive pulmonary disease, unspecified (7) HTN (hypertension): Code(s): I10 - Essential (primary) hypertension Qualifiers: Hypertension type: primary hypertension Qualified Code(s): I10 - Essential (primary) hypertension (8) Dependent on walker for ambulation: Code(s): Z99.89 - Dependence on other enabling machines and devices (9) Bilateral leg weakness: Code(s): R29.898 - Other symptoms and signs involving the musculoskeletal system (10) Risk for falls: Code(s): Z91.81 - History of falling Plan Patient is 68-year-old female with a history of diabetes mellitus is, difficulty walking, weakness in leg, diabetic neuropathy, lipid disorder, hypertension, irritable bowel syndrome makes, chronic nausea, obesity, bipolar disorder, depression, chronic GERD, anxiety, insulin-dependent Missed her regular follow-up appointment We set up a telemedicine so we can fill her medication She is due for labs as well, order placed patient notified She is requesting refill on Lyrica, something for nausea and constipation She tells me that she get constipation followed by diarrhea, initially patient was requesting Senokot but instead I am sending MiraLax explained to her that MiraLax is better in irritability bowel. She is to take it mixed in tall glass of liquid daily. Patient use assisted device to walk, currently she has a Rollator, she is requesting arm bath seat and also of walker She tells me when she has doctor's appointments it is difficult for her to bring her Rollator with her Medication list reviewed She has Medicare wellness visit in 1 week We will set up follow-up in 3 months Medications: New polyethylene glycol 3350 (Miralax) 17 grams PO DAILY 1,530 grams 0RF 90 days ondansetron HCl 4 mg PO Q8H PRN 14 tabs 0RF nausea and vomiting 7 days R11.0 - Nausea Refilled pregabalin 225 mg PO BID 180 caps 0RF 90 days E11.40 - Type 2 diabetes mellitus with diabetic neuropathy, unspecified Coding Level of Care Code Tele Est Pt Level 4 (95171) Diagnoses Gait disturbance R26.9 Recurrent major depressive disorder, in partial remission F33.41 Active/Remission status: in partial remission Chronic GERD K21.9 Environmental allergies Z91.09 Diabetic polyneuropathy associated with type 1 diabetes mellitus E10.42 Diabetes mellitus complication detail: diabetic polyneuropathy Diabetes mellitus type: type 1 COPD, severe J44.9 Primary hypertension I10 Hypertension type: primary hypertension Dependent on walker for ambulation Z99.89 Bilateral leg weakness R29.898 Risk for falls Z91.81 Time Spent (min) 38 Comment 6 minute pre visit, 20 with patient, 5 charting, 7 coordination of care
== END 2023-08-31 16:04 | disposition home or self-care (01) ==
LOC: HO.HMGC 07:56
PROVIDERS: PCP Internal Medicine; Visit Provider Internal Medicine
DX: R26.9 Unspecified abnormalities of gait and mobility (principal); F33.41 Major depressive disorder, recurrent, in partial remission; E10.42 Type 1 diabetes mellitus with diabetic polyneuropathy; J44.9 Chronic obstructive pulmonary disease, unspecified; K21.9 Gastro-esophageal reflux disease without esophagitis; Z91.09 Other allergy status, other than to drugs and biological substances; I10 Essential (primary) hypertension; Z99.89 Dependence on other enabling machines and devices; R29.898 Other symptoms and signs involving the musculoskeletal system; Z91.81 History of falling
CPT/HCPCS: 99443

== ENCOUNTER 2023-09-07 08:15 | Outpatient (AMB) | payer OTHER, SELFPAY ==
--- NOTE | 2023-09-07 08:09 | AM.OFFVISMDC ---
Intake Intake Visit Reasons: SWV, 6month fu Allergies lisinopril Allergy (Unknown, Verified 08/31/23 07:59) cough pravastatin Allergy (Unknown, Verified 08/31/23 07:59) muscle ache simvastatin Allergy (Unknown, Verified 08/31/23 07:59) myalgia Medication List - Last Reconciled 09/07/23 by Isabela Bautista MD aripiprazole 2 mg PO BEDTIME atorvastatin 40 mg PO DAILY blood sugar diagnostic (FreeStyle Lite Strips) patient to check fasting glucose three times daily bupropion HCl 150 mg PO BID carvedilol 12.5 mg PO BID 30 days losartan 50 mg PO DAILY 90 days meclizine 12.5 mg PO BID PRN 15 days multivitamin 1 tab PO DAILY omeprazole 20 mg PO DAILY 90 days ondansetron HCl 4 mg PO Q8H PRN 7 days pen needle, diabetic (BD Sarina 2nd Gen Pen Needle) once a day pen needle, diabetic once a day polyethylene glycol 3350 (Miralax) 17 grams PO DAILY 90 days pregabalin 225 mg PO BID 90 days sertraline 100 mg PO QAM [shower bench As directed] Tresiba FlexTouch U-200 (insulin degludec) 50 units (0.25 mL) subcut DAILY NS Ventolin HFA 90 mcg/actuation (albuterol sulfate) 1 inh inhalation QID PRN 30 days NS walker Standard Walker as directed HPI SWV, 6month fu HPI Details Patient is 68-year-old female patient is walker dependent and it is difficult for her to come to office for appointments Currently patient is having symptoms of bladder infection with burning and frequency of urination she is requesting an antibiotic Patient says that few days ago she was feeling nausea and then she has started having diarrhea she still have diarrhea however it is getting better Patient is pushing fluids, she is denying any fever or chills. Depression is treated by Psychiatry diabetes: patient is now seeing endocrinology [facility] for uncontrolled diabetes She is due for labs, I have also added urinalysis Patient have severe COPD however she is stable at this time and is off oxygen Hypertension: Continue losartan 25 mg carvedilol 12.5 mg b.i.d. Fibromyalgia and diabetic neuropathy, patient is on Lyrica 225 mg 2 times a day, Patient is walker dependent Follow-up 3 months HPI Comments History of Present Illness Details AWV medical/social history reviewed Past medical history reviewed Couch of care / care team list updated Surgical/ hospitalization history reviewed Current medications including OTC and supplements reviewed Family history reviewed Tobacco controlled form updated Alcohol use form updated Illicit drug use in social history reviewed Current diagnosis of depression screening updated Appropriate PHQ 2/PHQ-9 completed MMSE completed . Fall risk: Assessed Fall history: + Have you had any falls with injury in the past year? yes Have you had 2 or more falls in the past year? yes Fall risk assessment completed HRA filled out by the patient reviewed by provider and scanned . Examination IPPE/AWE: Balance off Romberg failed Tandem walk failed walk-in turn failed rise from sit to stand failed, information taken over the telephone and also based on patient's previous history . Hearing whisper test , could not be evaluated over the telephone Medication list reviewed, patient is stable on medications All other providers patient is seeing discussed and noted PPP handed to patient [facility] Medical History Depression, major, recurrent Chronic GERD Environmental allergies Diabetic neuropathy COPD, severe Osteopenia Vitamin D deficiency History of pancreatitis HLD (hyperlipidemia) HTN (hypertension) T2DM (type 2 diabetes mellitus) Surgical History Hx of hysterectomy Family History Mother CVA (cerebral vascular accident) T2DM (type 2 diabetes mellitus) Father No problems noted. Brother No problems noted. Brother No problems noted. Brother No problems noted. Sister No problems noted. Sister No problems noted. Sister No problems noted. Sister No problems noted. Daughter No problems noted. Daughter No problems noted. Social History Housing: Apartment Alcohol intake: former Patient Tobacco Use Status: Former Tobacco user Cigarette Packs Per Day: 1 Years Smoked: 40 e-Cigarette/Vaping Use: Never Used service: No Current occupational status: retired Cognitive needs: No Hearing needs: No Vision needs: Yes Questionnaire Medicare Wellness Checkup What [age] What gender do you identify with?: female During the past 4 weeks, how much have you been bothered by emotional problems such as feeling anxious, depressed, irritable, sad or downhearted, and blue?: quite a bit During the past 4 weeks, has your physical & emotional health limited your social activities with family, friends, neighbors, or groups?: quite a bit During the past 4 weeks, how much bodily pain have you generally had?: moderate pain During the past 4 weeks, was someone available to help you if you needed & wanted help?: yes, as much as I wanted During the past 4 weeks, what was the hardest physical activity you could do for at least 2 minutes?: very light Can you get to places out of walking distance without help? (For eg., can you travel alone on buses, taxis or drive your car?): No Can you go shopping for groceries or clothes without someone's help?: No Can you prepare your own meals?: No Can you do your housework without help?: No Because of any health problems, do you need the help of another person with your personal care needs such as eating, bathing, dressing or getting around the house?: Yes Can you handle your own money without help?: Yes During the past 4 weeks, how would you rate your health in general?: poor During the past 4 weeks how have things been going for you?: very bad; could hardly be worse Are you having difficulties driving your car?: not applicable, I don't use a car Do you always fasten your seat belt when you are in a car?: yes, usually During past 4 weeks, have you been bothered by the following: never: Sexual problems?, Trouble eating well? and Problems using the telephone?, sometimes: Falling or dizzy when standing up and Tiredness or fatigue? and often: Teeth or denture problems? Have you fallen 2 or more times in the past year?: No Are you afraid of falling?: Yes Are you a smoker?: no During the past 4 weeks, how many drinks of wine, beer, or other alcoholic beverages did you have?: no alcohol at all Do you exercise for about 20 minutes 3 or more times a week?: no, I usually do not exercise this much Have you been given information to help with the following?: no: Hazards in your house that might hurt you? and no: Keeping track of your medications? How often do you have trouble taking medicines the way you have been told to take them?: I always take medicine as prescribed How confident are you that you can control & manage most of your health problems?: not very confident What is your race?: White Mini Mental State Exam (MMSE) Orientation What is the (year) (season) (date) (day) (month)?: year, season, date, day and month Where are we (state) (county) (town or city) (hospital) (floor)?: state, county, town or city, hospital/clinic and floor Score Score: 10 Activity of Daily Living Bathing - sponge bath, tub bath or shower: receives help in bathing more than one body part (or not bathed) Dressing - getting clothes from closets & drawers, including inner/outer garments & fasteners.: receives help getting clothes or getting dressed, or stays undressed Toileting - going to the 'toilet room' for urine/bowel elimination & cleaning self/arranging clothes: receives help going to toilet room, cleaning self or arranging clothes Transfer: moves in & out of bed and chair without help (may use support object) Feeding: feeds self without help Total Score: 2 Information obtained from: patient Using telephone: independent Traveling: dependent Shopping: dependent Preparing meals: dependent Housework: dependent Taking medicine: needs assistance Managing money: independent PHQ-9 Over the last 2 weeks, how often have you been bothered by any of the following problems? 1. Little interest or pleasure in doing things: more than half the days 2. Feeling down, depressed, or hopeless: more than half the days 3. Trouble falling or staying asleep, or sleeping too much: not at all 4. Feeling tired or having little energy: more than half the days 5. Poor appetite or overeating: not at all 6. Feeling bad about yourself - or that you are a failure or have let yourself or your family down: not at all 7. Trouble concentrating on things, such as reading the newspaper or watching television: not at all 8. Moving or speaking so slowly that other people could have noticed. Or the opposite - being so fidgety or restless that you have been moving around a lot more than usual: not at all 9. Thoughts that you would be better off or of hurting yourself in some way: not at all Total score: 6 Depression Screening Interpretation: Negative Depression Screening Done: Yes Source: Developed by Drs. Nael Connelly, Jade Hinojosa, Lance Lizarraga and colleagues, with an educational kush from [employer]. Review of Systems Const Denies chills and Denies fever(s) ENT Denies epistaxis and Denies nasal discharge Card Denies chest pain Resp Denies chest congestion, Denies cough and Denies hemoptysis Skin/Breast Denies rash Neuro Reports no additional complaints Psych Reports no additional complaints Endo Reports no additional complaints Assessment & Plan Assessment & Plan (1) Depression, major, recurrent: Code(s): F33.9 - Major depressive disorder, recurrent, unspecified Qualifiers: Active/Remission status: in partial remission Qualified Code(s): F33.41 - Major depressive disorder, recurrent, in partial remission (2) Chronic GERD: Code(s): K21.9 - Gastro-esophageal reflux disease without esophagitis (3) Environmental allergies: Code(s): Z91.09 - Other allergy status, other than to drugs and biological substances (4) Diabetic neuropathy: Code(s): E11.40 - Type 2 diabetes mellitus with diabetic neuropathy, unspecified Qualifiers: Diabetes mellitus complication detail: diabetic polyneuropathy Diabetes mellitus type: type 1 Qualified Code(s): E10.42 - Type 1 diabetes mellitus with diabetic polyneuropathy Plan: \ (5) COPD, severe: Code(s): J44.9 - Chronic obstructive pulmonary disease, unspecified (6) Memory change: Code(s): R41.3 - Other amnesia (7) Dependent on walker for ambulation: Code(s): Z99.89 - Dependence on other enabling machines and devices (8) Bilateral leg weakness: Code(s): R29.898 - Other symptoms and signs involving the musculoskeletal system (9) Risk for falls: Code(s): Z91.81 - History of falling (10) Frequency of urination: Code(s): R35.0 - Frequency of micturition (11) Dysuria: Code(s): R30.0 - Dysuria (12) HTN (hypertension): Code(s): I10 - Essential (primary) hypertension Qualifiers: Hypertension type: primary hypertension Qualified Code(s): I10 - Essential (primary) hypertension (13) Nasal congestion: Code(s): R09.81 - Nasal congestion Plan: Start nasal spray I sent 1 spray each nostril at night (14) Medicare annual wellness visit, subsequent: Code(s): Z00.00 - Encounter for general adult medical examination without abnormal findings Plan Patient is 68-year-old female patient is walker dependent and it is difficult for her to come to office for appointments Currently patient is having symptoms of bladder infection with burning and frequency of urination she is requesting an antibiotic Patient says that few days ago she was feeling nausea and then she has started having diarrhea she still have diarrhea however it is getting better Patient is pushing fluids, she is denying any fever or chills. Depression is treated by Psychiatry diabetes: patient is now seeing endocrinology [facility] for uncontrolled diabetes She is due for labs, I have also added urinalysis Patient have severe COPD however she is stable at this time and is off oxygen Hypertension: Continue losartan 25 mg carvedilol 12.5 mg b.i.d. Fibromyalgia and diabetic neuropathy, patient is on Lyrica 225 mg 2 times a day, Patient is walker dependent Follow-up 3 months Orders: Orders UA CC w/rflx Micro + Cult Today E11.40 - Type 2 diabetes mellitus with diabetic neuropathy, unspecified, E11.65 - Type 2 diabetes mellitus with hyperglycemia, F33.9 - Major depressive disorder, recurrent, unspecified, J44.9 - Chronic obstructive pulmonary disease, unspecified, K21.9 - Gastro-esophageal reflux disease without esophagitis, R29.898 - Other symptoms and signs involving the musculoskeletal system, R30.0 - Dysuria, R35.0 - Frequency of micturition, R41.3 - Other amnesia, Z91.09 - Other allergy status, other than to drugs and biological substances, Z91.81 - History of falling, Z99.89 - Dependence on other enabling machines and devices TSH reflex Free T4 Today E11.40 - Type 2 diabetes mellitus with diabetic neuropathy, unspecified, E11.65 - Type 2 diabetes mellitus with hyperglycemia, F33.9 - Major depressive disorder, recurrent, unspecified, J44.9 - Chronic obstructive pulmonary disease, unspecified, K21.9 - Gastro-esophageal reflux disease without esophagitis, R29.898 - Other symptoms and signs involving the musculoskeletal system, R30.0 - Dysuria, R35.0 - Frequency of micturition, R41.3 - Other amnesia, Z91.09 - Other allergy status, other than to drugs and biological substances, Z91.81 - History of falling, Z99.89 - Dependence on other enabling machines and devices LDL Cholesterol Direct Today E11.40 - Type 2 diabetes mellitus with diabetic neuropathy, unspecified, E11.65 - Type 2 diabetes mellitus with hyperglycemia, F33.9 - Major depressive disorder, recurrent, unspecified, J44.9 - Chronic obstructive pulmonary disease, unspecified, K21.9 - Gastro-esophageal reflux disease without esophagitis, R29.898 - Other symptoms and signs involving the musculoskeletal system, R30.0 - Dysuria, R35.0 - Frequency of micturition, R41.3 - Other amnesia, Z91.09 - Other allergy status, other than to drugs and biological substances, Z91.81 - History of falling, Z99.89 - Dependence on other enabling machines and devices Hemoglobin A1c Today E11.40 - Type 2 diabetes mellitus with diabetic neuropathy, unspecified, E11.65 - Type 2 diabetes mellitus with hyperglycemia, F33.9 - Major depressive disorder, recurrent, unspecified, J44.9 - Chronic obstructive pulmonary disease, unspecified, K21.9 - Gastro-esophageal reflux disease without esophagitis, R29.898 - Other symptoms and signs involving the musculoskeletal system, R30.0 - Dysuria, R35.0 - Frequency of micturition, R41.3 - Other amnesia, Z91.09 - Other allergy status, other than to drugs and biological substances, Z91.81 - History of falling, Z99.89 - Dependence on other enabling machines and devices Microalbumin, Random (w Creat) Today E11.40 - Type 2 diabetes mellitus with diabetic neuropathy, unspecified, E11.65 - Type 2 diabetes mellitus with hyperglycemia, F33.9 - Major depressive disorder, recurrent, unspecified, J44.9 - Chronic obstructive pulmonary disease, unspecified, K21.9 - Gastro-esophageal reflux disease without esophagitis, R29.898 - Other symptoms and signs involving the musculoskeletal system, R30.0 - Dysuria, R35.0 - Frequency of micturition, R41.3 - Other amnesia, Z91.09 - Other allergy status, other than to drugs and biological substances, Z91.81 - History of falling, Z99.89 - Dependence on other enabling machines and devices Complete Blood Count Auto Diff Today E11.40 - Type 2 diabetes mellitus with diabetic neuropathy, unspecified, E11.65 - Type 2 diabetes mellitus with hyperglycemia, F33.9 - Major depressive disorder, recurrent, unspecified, J44.9 - Chronic obstructive pulmonary disease, unspecified, K21.9 - Gastro-esophageal reflux disease without esophagitis, R29.898 - Other symptoms and signs involving the musculoskeletal system, R30.0 - Dysuria, R35.0 - Frequency of micturition, R41.3 - Other amnesia, Z91.09 - Other allergy status, other than to drugs and biological substances, Z91.81 - History of falling, Z99.89 - Dependence on other enabling machines and devices Comprehensive Met. Panel Today E11.40 - Type 2 diabetes mellitus with diabetic neuropathy, unspecified, E11.65 - Type 2 diabetes mellitus with hyperglycemia, F33.9 - Major depressive disorder, recurrent, unspecified, J44.9 - Chronic obstructive pulmonary disease, unspecified, K21.9 - Gastro-esophageal reflux disease without esophagitis, R29.898 - Other symptoms and signs involving the musculoskeletal system, R30.0 - Dysuria, R35.0 - Frequency of micturition, R41.3 - Other amnesia, Z91.09 - Other allergy status, other than to drugs and biological substances, Z91.81 - History of falling, Z99.89 - Dependence on other enabling machines and devices Medications: New nitrofurantoin monohyd/m-cryst 100 mg (Macrobid) must administer with a meal/food 100 mg PO Q12H 10 caps 0RF 5 days Quality Reporting (2019) Depression/Bipolar (159/160/161/177) PHQ-9: Total score: 6 Coding Level of Care Code Medicare Subsequent (G0439) Est Pt Level 4 (47660) Diagnoses Recurrent major depressive disorder, in partial remission F33.41 Active/Remission status: in partial remission Chronic GERD K21.9 Environmental allergies Z91.09 Diabetic polyneuropathy associated with type 1 diabetes mellitus E10.42 Diabetes mellitus complication detail: diabetic polyneuropathy Diabetes mellitus type: type 1 COPD, severe J44.9 Memory change R41.3 Dependent on walker for ambulation Z99.89 Bilateral leg weakness R29.898 Risk for falls Z91.81 Frequency of urination R35.0 Dysuria R30.0 Primary hypertension I10 Hypertension type: primary hypertension Nasal congestion R09.81 Medicare annual wellness visit, subsequent Z00.00 CPT Codes Advance Care Planning - Time spent: 1-15 minutes, not on file ([id number]) Advance Care Planning Forms completed: Health Care Proxy (Discussed with the patient but not completed yet we will mail the forms to her) and MOLST (Discussed with the patient but not completed yet we will mail the forms to her) Time spent: 1-15 minutes, not on file
== END 2023-09-07 08:32 | disposition home or self-care (01) ==
LOC: HO.HMGC 08:15
PROVIDERS: PCP Internal Medicine; Visit Provider Internal Medicine
DX: F33.41 Major depressive disorder, recurrent, in partial remission (principal); E10.42 Type 1 diabetes mellitus with diabetic polyneuropathy; J44.9 Chronic obstructive pulmonary disease, unspecified; R30.0 Dysuria; R35.0 Frequency of micturition; K21.9 Gastro-esophageal reflux disease without esophagitis; Z91.09 Other allergy status, other than to drugs and biological substances; R41.3 Other amnesia; Z99.89 Dependence on other enabling machines and devices; R29.898 Other symptoms and signs involving the musculoskeletal system; Z91.81 History of falling; I10 Essential (primary) hypertension
CPT/HCPCS: 1124F; 99214; G0439

== ENCOUNTER 2023-09-08 08:01 | Outpatient (AMB) | payer OTHER, SELFPAY ==
--- NOTE | 2023-09-08 08:02 | MHC.PC.OV ---
Vital Signs 09/08/23 08:03 Height 5 ft Intake Visit Reasons: Wk F/u~[phone] Allergies lisinopril Allergy (Unknown, Verified 09/08/23 08:02) cough pravastatin Allergy (Unknown, Verified 09/08/23 08:02) muscle ache simvastatin Allergy (Unknown, Verified 09/08/23 08:02) myalgia Tobacco use date assessed: 09/08/23 Fall risk assessment: No Falls in past year Dental Screening Dental Screen Date: 09/08/23 Did you have a dental visit in the last 12 months?: No Did you have a dental problem in the last 6 months where you did not have access to dental care?: No Was dental information given to patient?: No HPI Wk F/u~[phone] HPI Details Patient is 68-year-old female this is a telemedicine follow-up from last week Patient was complaining of frequency of urination with dysuria She has not had labs since February, I requested labs and urine test, patient says that she was not able to come in but she will be coming in today We treated her empirically with antibiotics for cystitis with Macrobid Patient says that she is feeling much better her diarrhea has resolved and she is no longer having dysuria Further management after the lab reports [facility] Medical History Depression, major, recurrent Chronic GERD Environmental allergies Diabetic neuropathy COPD, severe Osteopenia Vitamin D deficiency History of pancreatitis HLD (hyperlipidemia) HTN (hypertension) T2DM (type 2 diabetes mellitus) Surgical History Hx of hysterectomy Family History Mother CVA (cerebral vascular accident) T2DM (type 2 diabetes mellitus) Father No problems noted. Brother No problems noted. Brother No problems noted. Brother No problems noted. Sister No problems noted. Sister No problems noted. Sister No problems noted. Sister No problems noted. Daughter No problems noted. Daughter No problems noted. Social History Housing: Apartment Alcohol intake: former Patient Tobacco Use Status: Former Tobacco user Cigarette Packs Per Day: 1 Years Smoked: 40 e-Cigarette/Vaping Use: Never Used service: No Current occupational status: retired Cognitive needs: No Hearing needs: No Vision needs: Yes Questionnaire Thrive Questionnaire Date Thrive assessed: 03/01/23 AUDIT C Alcohol Use Questionnaire (AUDIT-C) 1. How often do you have a drink containing alcohol?: Never 3. How often do you have six or more drinks on one occasion?: Never Total Score: 0 Score Reviewed/Action Taken: Yes VIRGILIO-7 AMB Questionnaire VIRGILIO-7 Date VIRGILIO - 7 assessed: 03/01/23 Source: Developed by Drs. Nael Connelly, Jade Hinojosa, Lance Lizarraga and colleagues, with an educational kush from [employer]. Review of Systems Const Denies chills and Denies fever(s) ENT Denies epistaxis and Denies nasal discharge Card Denies chest pain Resp Denies chest congestion, Denies cough and Denies hemoptysis GI Denies diarrhea and Denies nausea Skin/Breast Denies rash Neuro Reports no additional complaints Psych Reports no additional complaints Endo Reports no additional complaints Physical exam (Primary Care) Tobacco/Smoking Status: Tobacco use Status Tobacco use date assessed 09/08/23 09/08/23 08:03 Patient Tobacco Use Status Former Tobacco user 09/08/23 08:03 e-Cigarette/Vaping Use Never Used 09/08/23 08:03 Thrive Assessment: Date of Thrive Assessment Date Thrive assessed 03/01/23 09/08/23 08:03 Telehealth Telehealth Location of provider rendering services: practice address Location of patient: address on file Patient Identification confirmed using: Name, : Yes Telehealth method: voice only Patient verbally consented to treatment: Yes Patient verbally consented to billing insurance company: Yes Patient informed of any privacy concerns related to visit: Yes Minutes spent on Phone/Video with Pt.: 12 Assessment and Plan Assessment & Plan (1) Frequency of urination: Code(s): R35.0 - Frequency of micturition (2) Blood in urine: Code(s): R31.9 - Hematuria, unspecified Plan Patient is 68-year-old female this is a telemedicine follow-up from last week Patient was complaining of frequency of urination with dysuria She has not had labs since February, I requested labs and urine test, patient says that she was not able to come in but she will be coming in today We treated her empirically with antibiotics for cystitis with Macrobid Patient says that she is feeling much better her diarrhea has resolved and she is no longer having dysuria Further management after the lab reports Coding Level of Care Code Tele Est Pt Level 3 (13974) Diagnoses Frequency of urination R35.0 Blood in urine R31.9
== END 2023-09-08 10:43 | disposition home or self-care (01) ==
LOC: HO.HMGC 08:01
PROVIDERS: PCP Internal Medicine; Visit Provider Internal Medicine
DX: R35.0 Frequency of micturition (principal); R31.9 Hematuria, unspecified
CPT/HCPCS: 99442

== ENCOUNTER 2023-09-11 14:09 | Outpatient (REF) | payer OTHER, SELFPAY ==
[2023-09-11 16:27] LABS: MANUAL DIFF FLAG NO
[2023-09-11 16:36] LABS: Basophils Percent Auto 0.2 % (0-2); Eosinophils Absolute Auto 0.1 X10*3/uL (0.0-0.4); Eosinophils Percent Auto 1.4 % (0-4); Hematocrit 38.1 % (37.0-47.0); Hemoglobin 13.1 g/dl (12.0-16.0); Imm Gran Abs Auto 0.04 X10*3/uL (0.00-0.03); Imm Gran Pct Auto 0.4 % (0.0-0.4); Lymphocytes Percent Auto 10.4 % (20-40); Mean Corpuscular HGB Conc 34.4 g/dl (31.0-35.0); Mean Corpuscular Hemoglobin 30.3 pg (27.0-33.0); Monocytes Absolute Auto 0.8 X10*3/uL (0.1-1.2); Monocytes Percent Auto 8.8 % (2-11); Neutrophils Absolute Auto 7.4 x10*3/uL (2.0-8.3); Neutrophils Percent Auto 78.8 % (45-73); Platelet Count 348 X10*3/uL (160-400); Red Blood Count 4.33 X10*6/uL (4.20-5.50); Red Cell Distribution Width 12.8 % (11.0-16.0); White Blood Count 9.4 X10*3/uL (4.8-10.8)
[2023-09-11 16:38] LABS: Estimated Average Glucose 111 mg/dL; Hemoglobin A1c % 5.5 % (<6.0)
[2023-09-11 17:50] LABS: Alanine Aminotransferase 8 U/L (0-31); Albumin Level 3.7 g/dL (3.5-5.0); Alkaline Phosphatase 77 U/L (39-117); Anion Gap 16 (12-20); Aspartate Amino Transferase 12 U/L (5-31); Bilirubin Total 0.3 mg/dL (0.0-1.0); Blood Urea Nitrogen 14 mg/dL (9-16); Calcium 9.8 mg/dL (8.4-10.2); Carbon Dioxide 21 mmol/L (22-29); Chloride 111 mmol/L (96-108); Estimated Glomerular Filt Rate > 60; Glucose Random 105 mg/dL (60-115); Potassium 3.7 mmol/L (3.3-5.1); Sodium 144 mmol/L (135-145); Total Protein 6.6 g/dL (6.5-8.0)
[2023-09-11 18:05] LABS: TSH reflex Free T4 0.69 uIU/mL (0.32-4.0)
[2023-09-12 10:09] LABS: LDL Cholesterol Direct 150 mg/dL (<100)
== END 2023-09-11 14:10 | disposition home or self-care (01) ==
LOC: HO.HMGCLDS 14:09
PROVIDERS: PCP Internal Medicine; Visit Provider Internal Medicine
DX: E11.65 Type 2 diabetes mellitus with hyperglycemia (principal); F33.9 Major depressive disorder, recurrent, unspecified; K21.9 Gastro-esophageal reflux disease without esophagitis; Z91.09 Other allergy status, other than to drugs and biological substances; E11.40 Type 2 diabetes mellitus with diabetic neuropathy, unspecified; J44.9 Chronic obstructive pulmonary disease, unspecified; R41.3 Other amnesia; R35.0 Frequency of micturition; R30.0 Dysuria; Z99.89 Dependence on other enabling machines and devices; Z91.81 History of falling; R29.898 Other symptoms and signs involving the musculoskeletal system
CPT/HCPCS: 36415; 80053; 83036; 83721; 84443; 85025

== ENCOUNTER 2023-09-13 13:56 | Outpatient (REF) | payer OTHER, SELFPAY ==
[2023-09-13 16:17] LABS: Appearance Urine Cloudy; Color Urine Yellow; Glucose Urine UA Negative (Negative); Leukocyte Esterase Urine Large (3+) (Negative); Nitrite Urine Negative (Negative); PH 5.5 (5.0-9.0); Specific Gravity - Urine 1.015 (1.005-1.025); UMIC TRIGGER UACC YES; Urine Blood Large (3+) (Negative); Urine Ketones Negative (Negative); Urine Protein Trace mg/dL (Neg-Trace)
[2023-09-13 16:51] LABS: Creatinine Urine 66.67 mg/dL; Microalbum/Creatinine Ratio Ur 134.9 ug/mg cr (<30)
[2023-09-13 16:53] LABS: Bacteria Urine None Seen (None Seen); Calcium Oxalate Crystals Urine Present; Hyaline Casts Urine 0-2 /LPF (0-2); RBC Urine >20 /HPF (0-2); UACC Culture Trigger YES; WBC Urine 21-50 /HPF (0-5)
== END 2023-09-13 13:57 | disposition home or self-care (01) ==
LOC: HO.HMGCLDS 13:56
PROVIDERS: PCP Internal Medicine; Visit Provider Internal Medicine
DX: E11.40 Type 2 diabetes mellitus with diabetic neuropathy, unspecified (principal); E11.65 Type 2 diabetes mellitus with hyperglycemia; R35.0 Frequency of micturition; R30.0 Dysuria
CPT/HCPCS: 81001; 81003; 82043; 82570; 87086

== ENCOUNTER 2023-12-15 14:51 | Outpatient (REF) | payer OTHER, SELFPAY | END 2023-12-15 14:52 | disposition home or self-care (01) | LOC: HO.LNP 14:51 | PROVIDERS: Visit Provider Internal Medicine | DX: R30.0 Dysuria (principal) | CPT/HCPCS: 87086 ==

== ENCOUNTER 2023-12-15 14:51 | Outpatient (AMB) | payer OTHER, SELFPAY ==
[2023-12-15 14:51] VITALS: BP 120/72; PULSE 72; O2SAT 95; BMI 28.6
--- NOTE | 2023-12-15 14:51 | A.OFFPC_ITS ---
Vital Signs 12/15/23 14:51 Height 5 ft Weight 146 lb 6 oz BMI 28.6 BP 120/72 Blood Pressure Location Rt brachial Position Sitting Pulse 72 Pulse Source Pulse Oximeter Pulse Oximetry (%) 95 Oxygen Delivery Method Room Air Intake Visit Reasons: Urinary tract infection Allergies lisinopril Allergy (Unknown, Verified 12/15/23 14:52) cough pravastatin Allergy (Unknown, Verified 12/15/23 14:52) muscle ache simvastatin Allergy (Unknown, Verified 12/15/23 14:52) myalgia Medication List - Last Reconciled 12/15/23 by Isabela Bautista MD aripiprazole 2 mg PO BEDTIME atorvastatin 40 mg PO DAILY blood sugar diagnostic (FreeStyle Lite Strips) patient to check fasting glucose three times daily bupropion HCl SR 150 mg PO BID carvedilol 12.5 mg PO BID 30 days ciprofloxacin HCl 500 mg PO BID 5 days losartan 50 mg PO DAILY 90 days meclizine 12.5 mg PO BID PRN 15 days multivitamin 1 tab PO DAILY omeprazole 20 mg PO DAILY 90 days ondansetron HCl 4 mg PO Q8H PRN 7 days pen needle, diabetic (BD Sarina 2nd Gen Pen Needle) once a day pen needle, diabetic once a day polyethylene glycol 3350 (Miralax) 17 grams PO DAILY 90 days pregabalin 225 mg PO BID 90 days sertraline 100 mg PO QAM [shower bench As directed] Tresiba FlexTouch U-200 (insulin degludec) 50 units (0.25 mL) subcut DAILY NS Ventolin HFA 90 mcg/actuation (albuterol sulfate) 1 inh inhalation QID PRN 30 days NS walker Walker with wheels as directed Tobacco use date assessed: 12/15/23 Last assessed Fall Risk: 12/15/23 Dental Screening Dental Screen Date: 12/15/23 Did you have a dental visit in the last 12 months?: No Did you have a dental problem in the last 6 months where you did not have access to dental care?: No Was dental information given to patient?: No HPI Urinary tract infection HPI Details Patient is 68-year-old female with a history of diabetes mellitus is, difficulty walking, weakness in leg, diabetic neuropathy, lipid disorder, hypertension, irritable bowel syndrome makes, chronic nausea, obesity, bipolar disorder, depression, chronic GERD, anxiety, insulin-dependent Patient has been having vomiting and diarrhea for the past 3 -4 days She says that she just started eating 2 days ago We talked about reducing the dose of insulin the days she is not eating She has Pedialyte at home and she has started drinking that. I have sent refill on her nausea medication as well. Feels as if she has urinary tract infection UA shows signs of infection Antibiotics and Hemoglobin A1c is well-controlled patient is on long-acting insulin 50 units daily Diabetic neuropathy: She is requesting refill on Lyrica, . Patient use assisted device to walk, currently she has a Rollator, she is at risk for fall Medication list reviewed We will book telemedicine visit for next week to see how she is doing Regular follow-up in 3 months for medication refill [facility] Medical History Depression, major, recurrent Chronic GERD Environmental allergies Diabetic neuropathy COPD, severe Osteopenia Vitamin D deficiency History of pancreatitis HLD (hyperlipidemia) HTN (hypertension) T2DM (type 2 diabetes mellitus) Surgical History Hx of hysterectomy Family History Mother CVA (cerebral vascular accident) T2DM (type 2 diabetes mellitus) Father No problems noted. Brother No problems noted. Brother No problems noted. Brother No problems noted. Sister No problems noted. Sister No problems noted. Sister No problems noted. Sister No problems noted. Daughter No problems noted. Daughter No problems noted. Social History Housing: Apartment Alcohol intake: former Patient Tobacco Use Status: Former Tobacco user Cigarette Packs Per Day: 1 Years Smoked: 40 e-Cigarette/Vaping Use: Never Used service: No Current occupational status: retired Cognitive needs: No Hearing needs: No Vision needs: Yes Questionnaire Thrive Questionnaire Date Thrive assessed: 03/01/23 VIRGILIO-7 AMB Questionnaire VIRGILIO-7 Date VIRGILIO - 7 assessed: 03/01/23 Source: Developed by Drs. Nael Connelly, Jade Hinojosa, Lance Lizarraga and colleagues, with an educational kush from [employer]. Review of Systems Const Denies chills and Denies fever(s) ENT Denies epistaxis and Denies nasal discharge Card Denies chest pain Resp Denies chest congestion, Denies cough and Denies hemoptysis Skin/Breast Denies rash Neuro Reports no additional complaints Psych Reports no additional complaints Endo Reports no additional complaints Physical exam (Primary Care) Tobacco/Smoking Status: Tobacco use Status Tobacco use date assessed 12/15/23 12/15/23 14:55 Patient Tobacco Use Status Former Tobacco user 12/15/23 14:55 e-Cigarette/Vaping Use Never Used 12/15/23 14:55 Thrive Assessment: Date of Thrive Assessment Date Thrive assessed 03/01/23 12/15/23 14:55 Const General: cooperative, comfortable and no acute distress Orientation/consciousness: patient oriented x3 HENMT Head: Yes normocephalic Eyes General: appearance normal, both eyes and all related structures Neck Neck: Yes supple Resp Effort & Inspection: normal respiratory effort, no cough and no stridor Cardio Rhythm: regular rhythm Heart sounds: S1 normal heart sound present and S2 normal heart sound present Skin General skin exam: turgor normal Neuro Other: Uses walker for ambulation, she is here with [employer] General: patient oriented x3, tone normal and moves all extremities Extrem Right lower extremity: no edema Left lower extremity: no edema Results AMB Urinalysis, Automated UA Leukoctes 125 [place]/uL Last Edit by Abbey Ceron CMA on 12/15/23 15:04 UA Nitrite Negative Last Edit by Abbey Ceron CMA on 12/15/23 15:04 UA Urobilinogen 0.2 mg/dL Last Edit by Abbey Ceron CMA on 12/15/23 15:04 UA Protein 15 mg/dL Last Edit by Abbey Ceron CMA on 12/15/23 15:04 UA pH 6.0 Last Edit by Abbey Ceron CMA on 12/15/23 15:04 UA Blood 200 [place]y/uL Last Edit by Abbey Ceron CMA on 12/15/23 15:04 UA Specific [place] 1.005 Last Edit by Abbey Ceron CMA on 12/15/23 15:04 UA Ketone Negative Last Edit by Abbey Ceron CMA on 12/15/23 15:04 UA Bilirubin 0 mg/dL Last Edit by Abbey Ceron CMA on 12/15/23 15:04 UA Glucose 0 mg/dL Last Edit by Abbey Ceron CMA on 12/15/23 15:04 Assessment and Plan Assessment & Plan (1) Nausea & vomiting: Code(s): R11.2 - Nausea with vomiting, unspecified Qualifiers: Vomiting type: unspecified Qualified Code(s): R11.2 - Nausea with vomiting, unspecified (2) Weakness: Code(s): R53.1 - Weakness (3) HTN (hypertension): Code(s): I10 - Essential (primary) hypertension Qualifiers: Hypertension type: primary hypertension Qualified Code(s): I10 - Essential (primary) hypertension (4) COPD, severe: Code(s): J44.9 - Chronic obstructive pulmonary disease, unspecified (5) Gait disturbance: Code(s): R26.9 - Unspecified abnormalities of gait and mobility (6) Diabetic neuropathy: Code(s): E11.40 - Type 2 diabetes mellitus with diabetic neuropathy, unspecified Qualifiers: Diabetes mellitus complication detail: diabetic polyneuropathy Diabetes mellitus type: type 1 Qualified Code(s): E10.42 - Type 1 diabetes mellitus with diabetic polyneuropathy (7) Depression, major, recurrent: Code(s): F33.9 - Major depressive disorder, recurrent, unspecified Qualifiers: Active/Remission status: in partial remission Qualified Code(s): F33.41 - Major depressive disorder, recurrent, in partial remission (8) Chronic GERD: Code(s): K21.9 - Gastro-esophageal reflux disease without esophagitis (9) Environmental allergies: Code(s): Z91.09 - Other allergy status, other than to drugs and biological substances (10) Dependent on walker for ambulation: Code(s): Z99.89 - Dependence on other enabling machines and devices (11) Bilateral leg weakness: Code(s): R29.898 - Other symptoms and signs involving the musculoskeletal system (12) Risk for falls: Code(s): Z91.81 - History of falling (13) Dysuria: Code(s): R30.0 - Dysuria Plan Patient is 68-year-old female with a history of diabetes mellitus is, difficulty walking, weakness in leg, diabetic neuropathy, lipid disorder, hypertension, irritable bowel syndrome makes, chronic nausea, obesity, bipolar disorder, depression, chronic GERD, anxiety, insulin-dependent Patient has been having vomiting and diarrhea for the past 3 -4 days She says that she just started eating 2 days ago We talked about reducing the dose of insulin the days she is not eating She has Pedialyte at home and she has started drinking that. I have sent refill on her nausea medication as well. Feels as if she has urinary tract infection UA shows signs of infection Antibiotics and Hemoglobin A1c is well-controlled patient is on long-acting insulin 50 units daily Diabetic neuropathy: She is requesting refill on Lyrica, . Patient use assisted device to walk, currently she has a Rollator, she is at risk for fall Medication list reviewed We will book telemedicine visit for next week to see how she is doing Regular follow-up in 3 months for medication refill Orders: Orders AMB Urinalysis Automated Today Z13.9 - Encounter for screening, unspecified Urine Culture Today R30.0 - Dysuria Medications: New ondansetron 8 mg PO Q12H PRN 90 tabs 0RF nausea and vomiting Refilled pregabalin 225 mg PO BID 90 days 180 caps 0RF E11.40 - Type 2 diabetes mellitus with diabetic neuropathy, unspecified nitrofurantoin monohyd/m-cryst 100 mg (Macrobid) must administer with a meal/food 100 mg PO Q12H 5 days 10 caps 0RF Discontinued ondansetron HCl Discontinued Reason: Doctor's Order 4 mg PO Q8H 7 days PRN 14 tabs 0RF nausea and vomiting R11.0 - Nausea ciprofloxacin HCl Discontinued Reason: Doctor's Order 500 mg PO BID 5 days 10 tabs 0RF Coding Level of Care Code Est Pt Level 4 (02264) Complex EM visit Add On G2211 Diagnoses Nausea and vomiting, unspecified vomiting type R11.2 Vomiting type: unspecified Weakness R53.1 Primary hypertension I10 Hypertension type: primary hypertension COPD, severe J44.9 Gait disturbance R26.9 Diabetic polyneuropathy associated with type 1 diabetes mellitus E10.42 Diabetes mellitus complication detail: diabetic polyneuropathy Diabetes mellitus type: type 1 Recurrent major depressive disorder, in partial remission F33.41 Active/Remission status: in partial remission Chronic GERD K21.9 Environmental allergies Z91.09 Dependent on walker for ambulation Z99.89 Bilateral leg weakness R29.898 Risk for falls Z91.81 Dysuria R30.0
== END 2023-12-15 16:48 | disposition home or self-care (01) ==
LOC: HO.HMGC 14:51
PROVIDERS: PCP Internal Medicine; Visit Provider Internal Medicine
DX: R30.0 Dysuria (principal)
CPT/HCPCS: 81003; 99214; G2211

== ENCOUNTER 2023-12-21 06:57 | Outpatient (AMB) | payer OTHER, SELFPAY ==
--- NOTE | 2023-12-21 08:42 | MHC.PC.OV ---
Intake Visit Reasons: Follow up from 12/14~ [phone] Allergies lisinopril Allergy (Unknown, Verified 12/15/23 14:52) cough pravastatin Allergy (Unknown, Verified 12/15/23 14:52) muscle ache simvastatin Allergy (Unknown, Verified 12/15/23 14:52) myalgia Medication List - Last Reconciled 12/21/23 by Isabela Bautista MD aripiprazole 2 mg PO BEDTIME atorvastatin 40 mg PO DAILY blood sugar diagnostic (FreeStyle Lite Strips) patient to check fasting glucose three times daily bupropion HCl SR 150 mg PO BID carvedilol 12.5 mg PO BID 30 days losartan 50 mg PO DAILY 90 days meclizine 12.5 mg PO BID PRN 15 days multivitamin 1 tab PO DAILY nitrofurantoin monohyd/m-cryst 100 mg (Macrobid) 100 mg PO Q12H 5 days omeprazole 20 mg PO DAILY 90 days ondansetron 8 mg PO Q12H PRN pen needle, diabetic (BD Sarina 2nd Gen Pen Needle) once a day pen needle, diabetic once a day polyethylene glycol 3350 (Miralax) 17 grams PO DAILY 90 days pregabalin 225 mg PO BID 90 days sertraline 100 mg PO QAM [shower bench As directed] Tresiba FlexTouch U-200 (insulin degludec) 50 units (0.25 mL) subcut DAILY NS Ventolin HFA 90 mcg/actuation (albuterol sulfate) 1 inh inhalation QID PRN 30 days NS walker Walker with wheels as directed Tobacco use date assessed: 12/15/23 Dental Screening Dental Screen Date: 12/15/23 HPI Follow up from 12/14~ [phone] HPI Details This is Telemed visit to f/u on Patients diarrhea and UTI she was treated with antibiotics Feeling much better diarrhea has resolved Urinary symptoms are better patient states she is feeling good today offer no new complains PFSH Medical History Depression, major, recurrent Chronic GERD Environmental allergies Diabetic neuropathy COPD, severe Osteopenia Vitamin D deficiency History of pancreatitis HLD (hyperlipidemia) HTN (hypertension) T2DM (type 2 diabetes mellitus) Surgical History Hx of hysterectomy Family History Mother CVA (cerebral vascular accident) T2DM (type 2 diabetes mellitus) Father No problems noted. Brother No problems noted. Brother No problems noted. Brother No problems noted. Sister No problems noted. Sister No problems noted. Sister No problems noted. Sister No problems noted. Daughter No problems noted. Daughter No problems noted. Social History Housing: Apartment Alcohol intake: former Patient Tobacco Use Status: Former Tobacco user Cigarette Packs Per Day: 1 Years Smoked: 40 e-Cigarette/Vaping Use: Never Used service: No Current occupational status: retired Cognitive needs: No Hearing needs: No Vision needs: Yes Questionnaire Thrive Questionnaire Date Thrive assessed: 03/01/23 VIRGILIO-7 AMB Questionnaire VIRGILIO-7 Date VIRGILIO - 7 assessed: 03/01/23 Source: Developed by Drs. Nael Connelly, Jade Hinojosa, Lance Lizarraga and colleagues, with an educational kush from [employer]. Review of Systems Const Denies chills and Denies fever(s) ENT Denies epistaxis and Denies nasal discharge Card Denies chest pain Resp Denies chest congestion, Denies cough and Denies hemoptysis GI Denies diarrhea and Denies nausea Skin/Breast Denies rash Neuro Reports no additional complaints Psych Reports no additional complaints Endo Reports no additional complaints Physical exam (Primary Care) Tobacco/Smoking Status: Tobacco use Status Tobacco use date assessed 12/15/23 12/15/23 14:55 Patient Tobacco Use Status Former Tobacco user 12/15/23 14:55 e-Cigarette/Vaping Use Never Used 12/15/23 14:55 Thrive Assessment: Date of Thrive Assessment Date Thrive assessed 03/01/23 12/15/23 14:55 Telehealth Telehealth Telehealth Platform: [facility] Location of provider rendering services: practice address Location of patient: address on file Patient Identification confirmed using: Name, : Yes Telehealth method: voice only Patient verbally consented to treatment: Yes Patient verbally consented to billing insurance company: Yes Patient informed of any privacy concerns related to visit: Yes Assessment and Plan Assessment & Plan (1) Weakness: Code(s): R53.1 - Weakness (2) Dysuria: Code(s): R30.0 - Dysuria Plan This is Telemed visit to f/u on Patients diarrhea and UTI she was treated with antibiotics Feeling much better diarrhea has resolved Urinary symptoms are better patient states she is feeling good today offer no new complains Coding Level of Care Code Tele Est Pt Level 3 (46412) Diagnoses Weakness R53.1 Dysuria R30.0 Time Spent (min) 12
== END 2023-12-21 09:51 | disposition home or self-care (01) ==
LOC: HO.HMGC 06:57
PROVIDERS: PCP Internal Medicine; Visit Provider Internal Medicine
DX: R53.1 Weakness (principal); R30.0 Dysuria
CPT/HCPCS: 99442

== ENCOUNTER 2024-02-06 10:29 | Outpatient (AMB) | payer OTHER, SELFPAY ==
[2024-02-06 10:32] VITALS: BP 178/110; PULSE 102; O2SAT 99; BMI 25.0
--- NOTE | 2024-02-06 10:36 | MHC.PC.OV ---
Vital Signs 02/06/24 10:32 02/06/24 11:07 Height 5 ft Weight 128 lb 4 oz BMI 25.0 BP 178/110 H 130/89 Blood Pressure Location Rt brachial Position Sitting Pulse 102 H Pulse Source Pulse Oximeter Pulse Oximetry (%) 99 Oxygen Delivery Method Room Air Intake Visit Reasons: Hosp d/c Allergies lisinopril Allergy (Unknown, Verified 02/06/24 10:36) cough pravastatin Allergy (Unknown, Verified 02/06/24 10:36) muscle ache simvastatin Allergy (Unknown, Verified 02/06/24 10:36) myalgia Medication List - Last Reconciled 02/06/24 by Isbaela Bautista MD aripiprazole 2 mg PO BEDTIME atorvastatin 40 mg PO DAILY blood sugar diagnostic (FreeStyle Lite Strips) patient to check fasting glucose three times daily bupropion HCl SR 150 mg PO BID carvedilol 12.5 mg PO BID 30 days losartan 50 mg PO DAILY 90 days meclizine 12.5 mg PO BID PRN 15 days multivitamin 1 tab PO DAILY omeprazole 20 mg PO DAILY 90 days ondansetron 8 mg PO Q12H PRN pen needle, diabetic (BD Sarina 2nd Gen Pen Needle) once a day pen needle, diabetic once a day polyethylene glycol 3350 (Miralax) 17 grams PO DAILY 90 days pregabalin 225 mg PO BID 90 days sertraline 100 mg PO QAM [shower bench As directed] Tresiba FlexTouch U-200 (insulin degludec) 50 units (0.25 mL) subcut DAILY NS Ventolin HFA 90 mcg/actuation (albuterol sulfate) 1 inh inhalation QID PRN 30 days NS walker Walker with wheels as directed Tobacco use date assessed: 02/06/24 Fall risk assessment: 2 + Falls in past year (5 Falls) Last assessed Fall Risk: 02/06/24 Dental Screening Dental Screen Date: 02/06/24 Did you have a dental visit in the last 12 months?: No Did you have a dental problem in the last 6 months where you did not have access to dental care?: No Was dental information given to patient?: No HPI Hosp d/c HPI Details 68-year-old female with a past medical history of COPD, prior CVA, hypertension, hyperlipidemia, diabetes mellitus, mood disorder presented to [facility] Emergency room with a chief complaint of nausea vomiting and diarrhea, 12/30/2023 Workup revealed low magnesium level Gastroenteritis of unclear etiology Her abdomen exam was soft with minimal tenderness to deep palpation she was afebrile without any evidence of leukocytosis on labs CT abdomen and pelvis with IV contrast revealed gastrohepatic lymphadenopathy of uncertain significance Diffuse colonic wall thickening secondary to mild pancolitis Diffuse severe colonic diverticulosis Mild gallbladder wall thickening, cholecystitis not excluded, no gallstones appreciated on CT scan Patient will need an ultrasound of gallbladder as an outpatient EKG showed prolonged QTC Urine test showed urinary tract infection Patient will need repeat urinalysis and magnesium level Ultrasound of gallbladder ordered, referral to gastroenterology placed as well for gastrohepatic lymphadenopathy evaluation. EKG shows-tachycardia, 92 beats per minute prolonged QT interval at 519 ms, right bundle branch block Patient is to see theatrical variety agent urgently She has no chest pain or shortness a breath at this time She is now eating at her baseline Abdomen still have generalize discomfort more so right upper quadrant PFSH Medical History Depression, major, recurrent Chronic GERD Environmental allergies Diabetic neuropathy COPD, severe Osteopenia Vitamin D deficiency History of pancreatitis HLD (hyperlipidemia) HTN (hypertension) T2DM (type 2 diabetes mellitus) Surgical History Hx of hysterectomy Family History Mother CVA (cerebral vascular accident) T2DM (type 2 diabetes mellitus) Father No problems noted. Brother No problems noted. Brother No problems noted. Brother No problems noted. Sister No problems noted. Sister No problems noted. Sister No problems noted. Sister No problems noted. Daughter No problems noted. Daughter No problems noted. Social History Housing: Apartment Alcohol intake: former Patient Tobacco Use Status: Former Tobacco user Cigarette Packs Per Day: 1 Years Smoked: 40 e-Cigarette/Vaping Use: Never Used service: No Current occupational status: retired Cognitive needs: No Hearing needs: No Vision needs: Yes Questionnaire Thrive Questionnaire Date Thrive assessed: 03/01/23 AUDIT C Alcohol Use Questionnaire (AUDIT-C) 1. How often do you have a drink containing alcohol?: Never 3. How often do you have six or more drinks on one occasion?: Never Total Score: 0 Score Reviewed/Action Taken: Yes VIRGILIO-7 AMB Questionnaire VIRGILIO-7 Date VIRGILIO - 7 assessed: 03/01/23 Source: Developed by Drs. Nael Connelly, Jade Hinojosa, Lance Lizarraga and colleagues, with an educational kush from [employer]. Review of Systems Const Denies chills and Denies fever(s) ENT Denies epistaxis and Denies nasal discharge Card Denies chest pain Resp Denies chest congestion, Denies cough and Denies hemoptysis GI Denies diarrhea and Denies nausea Skin/Breast Denies rash Neuro Reports no additional complaints Psych Reports no additional complaints Endo Reports no additional complaints Physical exam (Primary Care) Vital Signs: Last Vital Signs Pulse 102 H 02/06/24 10:32 BP 130/89 02/06/24 11:07 Pulse Ox 99 02/06/24 10:32 Oxygen Delivery Method Room Air 02/06/24 10:32 BMI result Body Mass Index 25.0 Tobacco/Smoking Status: Tobacco use Status Tobacco use date assessed 02/06/24 02/06/24 10:36 Patient Tobacco Use Status Former Tobacco user 02/06/24 10:36 e-Cigarette/Vaping Use Never Used 02/06/24 10:36 Thrive Assessment: Date of Thrive Assessment Date Thrive assessed 03/01/23 02/06/24 10:36 Const General: cooperative, comfortable and no acute distress Orientation/consciousness: patient oriented x3 HENMT Head: Yes normocephalic Eyes General: appearance normal, both eyes and all related structures Neck Neck: Yes supple Resp Effort & Inspection: normal respiratory effort, no cough and no stridor Cardio Other: Rhythm: regular rhythm Heart sounds: S1 normal heart sound present and S2 normal heart sound present Skin General skin exam: turgor normal Neuro General: patient oriented x3, tone normal and moves all extremities Extrem Right lower extremity: no edema Left lower extremity: no edema Office Procedures EKG [id number], Complete Assessment and Plan Assessment & Plan (1) Hospital discharge follow-up: Code(s): Z09 - Encounter for follow-up examination after completed treatment for conditions other than malignant neoplasm (2) Prolonged QT interval: Code(s): R94.31 - Abnormal electrocardiogram [ECG] [EKG] (3) Low magnesium level: Code(s): R79.0 - Abnormal level of blood mineral (4) Right upper quadrant pain: Code(s): R10.11 - Right upper quadrant pain (5) Abdominal lymphadenopathy: Code(s): R59.0 - Localized enlarged lymph nodes (6) T2DM (type 2 diabetes mellitus): Code(s): E11.9 - Type 2 diabetes mellitus without complications Qualifiers: Diabetes mellitus complication status: with hyperglycemia Diabetes mellitus truck terminal manager insulin use: with halfway use Qualified Code(s): E11.65 - Type 2 diabetes mellitus with hyperglycemia; Z79.4 - care home (current) use of insulin (7) COPD, severe: Code(s): J44.9 - Chronic obstructive pulmonary disease, unspecified (8) Diabetic neuropathy: Code(s): E11.40 - Type 2 diabetes mellitus with diabetic neuropathy, unspecified Qualifiers: Diabetes mellitus complication detail: diabetic polyneuropathy Diabetes mellitus type: type 1 Qualified Code(s): E10.42 - Type 1 diabetes mellitus with diabetic polyneuropathy (9) Chronic GERD: Code(s): K21.9 - Gastro-esophageal reflux disease without esophagitis (10) Bladder infection: Code(s): N30.90 - Cystitis, unspecified without hematuria (11) Abnormal EKG: Code(s): R94.31 - Abnormal electrocardiogram [ECG] [EKG] Plan 68-year-old female with a past medical history of COPD, prior CVA, hypertension, hyperlipidemia, diabetes mellitus, mood disorder presented to [facility] Emergency room with a chief complaint of nausea vomiting and diarrhea, 12/30/2023 Workup revealed low magnesium level Gastroenteritis of unclear etiology Her abdomen exam was soft with minimal tenderness to deep palpation she was afebrile without any evidence of leukocytosis on labs CT abdomen and pelvis with IV contrast revealed gastrohepatic lymphadenopathy of uncertain significance Diffuse colonic wall thickening secondary to mild pancolitis Diffuse severe colonic diverticulosis Mild gallbladder wall thickening, cholecystitis not excluded, no gallstones appreciated on CT scan Patient will need an ultrasound of gallbladder as an outpatient EKG showed prolonged QTC Urine test showed urinary tract infection Patient will need repeat urinalysis and magnesium level Ultrasound of gallbladder ordered, referral to gastroenterology placed as well for gastrohepatic lymphadenopathy evaluation. EKG shows-tachycardia, 92 beats per minute prolonged QT interval at 519 ms, right bundle branch block Patient is to see theatrical variety agent urgently She has no chest pain or shortness a breath at this time She is now eating at her baseline Abdomen still have generalize discomfort more so right upper quadrant 46 minutes spent in care of this patient including reviewing emergency room note, chart Ssmr-[id number] with the patient, EKG, coordination of care Orders: Orders US abdomen complete Today R10.11 - Right upper quadrant pain Magnesium Today E10.42 - Type 1 diabetes mellitus with diabetic polyneuropathy, E11.65 - Type 2 diabetes mellitus with hyperglycemia, J44.9 - Chronic obstructive pulmonary disease, unspecified, K21.9 - Gastro-esophageal reflux disease without esophagitis, R10.11 - Right upper quadrant pain, R59.0 - Localized enlarged lymph nodes, R79.0 - Abnormal level of blood mineral, Z09 - Encounter for follow-up examination after completed treatment for conditions other than malignant neoplasm, Z79.4 - superintendent terminal (current) use of insulin Comprehensive Met. Panel Today E10.42 - Type 1 diabetes mellitus with diabetic polyneuropathy, E11.65 - Type 2 diabetes mellitus with hyperglycemia, J44.9 - Chronic obstructive pulmonary disease, unspecified, K21.9 - Gastro-esophageal reflux disease without esophagitis, R10.11 - Right upper quadrant pain, R59.0 - Localized enlarged lymph nodes, R79.0 - Abnormal level of blood mineral, Z09 - Encounter for follow-up examination after completed treatment for conditions other than malignant neoplasm, Z79.4 - superintendent terminal (current) use of insulin UA CC w/rflx Micro + Cult Today N30.90 - Cystitis, unspecified without hematuria Hemoglobin A1c Today E10.42 - Type 1 diabetes mellitus with diabetic polyneuropathy, E11.65 - Type 2 diabetes mellitus with hyperglycemia, J44.9 - Chronic obstructive pulmonary disease, unspecified, K21.9 - Gastro-esophageal reflux disease without esophagitis, R10.11 - Right upper quadrant pain, R59.0 - Localized enlarged lymph nodes, R79.0 - Abnormal level of blood mineral, Z09 - Encounter for follow-up examination after completed treatment for conditions other than malignant neoplasm, Z79.4 - superintendent terminal (current) use of insulin Complete Blood Count Auto Diff Today E10.42 - Type 1 diabetes mellitus with diabetic polyneuropathy, E11.65 - Type 2 diabetes mellitus with hyperglycemia, J44.9 - Chronic obstructive pulmonary disease, unspecified, K21.9 - Gastro-esophageal reflux disease without esophagitis, R10.11 - Right upper quadrant pain, R59.0 - Localized enlarged lymph nodes, R79.0 - Abnormal level of blood mineral, Z09 - Encounter for follow-up examination after completed treatment for conditions other than malignant neoplasm, Z79.4 - superintendent terminal (current) use of insulin AMB EKG-In Office Today R94.31 - Abnormal electrocardiogram [ECG] [EKG] Referrals Gastroenterology Referral R10.11 - Right upper quadrant pain, R59.0 - Localized enlarged lymph nodes Cardiology Referral R94.31 - Abnormal electrocardiogram [ECG] [EKG] Coding Level of Care Code Est Pt Level 5 (68759) Diagnoses Hospital discharge follow-up Z09 Prolonged QT interval R94.31 Low magnesium level R79.0 Right upper quadrant pain R10.11 Abdominal lymphadenopathy R59.0 Type 2 diabetes mellitus with hyperglycemia, with long-term current use of insulin E11.65; Z79.4 Diabetes mellitus complication status: with hyperglycemia Diabetes mellitus truck terminal manager insulin use: with truck terminal manager use COPD, severe J44.9 Diabetic polyneuropathy associated with type 1 diabetes mellitus E10.42 Diabetes mellitus complication detail: diabetic polyneuropathy Diabetes mellitus type: type 1 Chronic GERD K21.9 Bladder infection N30.90 Abnormal EKG R94.31 CPT Codes EKG - CPT: 90435-[id number], Complete ([id number])
[2024-02-06 11:07] VITALS: BP 130/89
== END 2024-02-06 12:15 | disposition home or self-care (01) ==
PROVIDERS: PCP Internal Medicine; Visit Provider Internal Medicine
DX: E11.65 Type 2 diabetes mellitus with hyperglycemia (principal); Z79.4 Long term (current) use of insulin; J44.9 Chronic obstructive pulmonary disease, unspecified; R94.31 Abnormal electrocardiogram [ECG] [EKG]; Z09 Encounter for follow-up examination after completed treatment for conditions other than malignant neoplasm; R79.0 Abnormal level of blood mineral; R59.0 Localized enlarged lymph nodes; R10.11 Right upper quadrant pain; K21.9 Gastro-esophageal reflux disease without esophagitis; N30.90 Cystitis, unspecified without hematuria
CPT/HCPCS: 93000; 99215

== ENCOUNTER 2024-02-06 11:02 | Outpatient (REF) | payer OTHER, SELFPAY ==
[2024-02-06 12:58] LABS: MANUAL DIFF FLAG NO
[2024-02-06 13:06] LABS: Basophils Percent Auto 0.2 % (0-2); Eosinophils Percent Auto 0.3 % (0-4); Hematocrit 40.6 % (37.0-47.0); Hemoglobin 14.2 g/dl (12.0-16.0); Imm Gran Abs Auto 0.04 X10*3/uL (0.00-0.03); Imm Gran Pct Auto 0.4 % (0.0-0.4); Lymphocytes Absolute Auto 1.4 X10*3/uL (1.2-4.9); Lymphocytes Percent Auto 15.2 % (20-40); Mean Corpuscular Volume 88.6 fL (80.0-98.0); Mean Platelet Volume 10.1 fL (9.4-12.3); Monocytes Absolute Auto 0.8 X10*3/uL (0.1-1.2); Monocytes Percent Auto 8.4 % (2-11); Neutrophils Absolute Auto 6.7 x10*3/uL (2.0-8.3); Neutrophils Percent Auto 75.5 % (45-73); Platelet Count 316 X10*3/uL (160-400); Red Blood Count 4.58 X10*6/uL (4.20-5.50); Red Cell Distribution Width 13.6 % (11.0-16.0); White Blood Count 8.9 X10*3/uL (4.8-10.8)
[2024-02-06 13:10] LABS: Estimated Average Glucose 111 mg/dL; Hemoglobin A1c % 5.5 % (<6.0)
[2024-02-06 13:30] LABS: Alanine Aminotransferase 8 U/L (0-31); Albumin Level 4.1 g/dL (3.5-5.0); Alkaline Phosphatase 69 U/L (39-117); Anion Gap 16 (12-20); Aspartate Amino Transferase 10 U/L (5-31); Bilirubin Total 0.8 mg/dL (0.0-1.0); Blood Urea Nitrogen 7 mg/dL (9-16); Calcium 9.9 mg/dL (8.4-10.2); Carbon Dioxide 24 mmol/L (22-29); Chloride 107 mmol/L (96-108); Estimated Glomerular Filt Rate > 60; Glucose Random 151 mg/dL (60-115); Magnesium 1.4 mg/dL (1.6-2.6); Potassium 2.8 mmol/L (3.3-5.1); Sodium 144 mmol/L (135-145)
== END 2024-02-06 11:03 | disposition home or self-care (01) ==
LOC: HO.HMGCLDS 11:02
PROVIDERS: PCP Internal Medicine; Visit Provider Internal Medicine
DX: R10.11 Right upper quadrant pain (principal); R59.0 Localized enlarged lymph nodes; Z09 Encounter for follow-up examination after completed treatment for conditions other than malignant neoplasm; R79.0 Abnormal level of blood mineral; E10.42 Type 1 diabetes mellitus with diabetic polyneuropathy; J44.9 Chronic obstructive pulmonary disease, unspecified; K21.9 Gastro-esophageal reflux disease without esophagitis; Z79.4 Long term (current) use of insulin
CPT/HCPCS: 36415; 80053; 83036; 83735; 85025

== ENCOUNTER 2024-02-21 11:11 | Outpatient (AMB) | payer OTHER, SELFPAY ==
[2024-02-21 11:14] VITALS: BP 128/84; PULSE 86; O2SAT 98; BMI 24.1
--- NOTE | 2024-02-21 11:14 | MHC.PC.OV ---
Vital Signs 02/21/24 11:14 Height 5 ft Weight 123 lb 8 oz BMI 24.1 BP 128/84 Blood Pressure Location Lt brachial Pulse 86 Pulse Source Pulse Oximeter Pulse Oximetry (%) 98 Oxygen Delivery Method Room Air Intake Visit Reasons: nausea/diarrhea Allergies lisinopril Allergy (Unknown, Verified 02/06/24 10:36) cough pravastatin Allergy (Unknown, Verified 02/06/24 10:36) muscle ache simvastatin Allergy (Unknown, Verified 02/06/24 10:36) myalgia Medication List - Last Reconciled 02/21/24 by Isabela Bautista MD aripiprazole 2 mg PO BEDTIME atorvastatin 40 mg PO DAILY blood sugar diagnostic (FreeStyle Lite Strips) patient to check fasting glucose three times daily bupropion HCl SR 150 mg PO BID carvedilol 12.5 mg PO BID 30 days losartan 50 mg PO DAILY 90 days meclizine 12.5 mg PO BID PRN 15 days multivitamin 1 tab PO DAILY omeprazole 20 mg PO DAILY 90 days ondansetron 8 mg PO Q12H PRN pen needle, diabetic (BD Sarina 2nd Gen Pen Needle) once a day pen needle, diabetic once a day polyethylene glycol 3350 (Miralax) 17 grams PO DAILY 90 days pregabalin 225 mg PO BID 90 days sertraline 100 mg PO QAM [shower bench As directed] Tresiba FlexTouch U-200 (insulin degludec) 50 units (0.25 mL) subcut DAILY NS Ventolin HFA 90 mcg/actuation (albuterol sulfate) 1 inh inhalation QID PRN 30 days NS walker Walker with wheels as directed Tobacco use date assessed: 02/06/24 Dental Screening Dental Screen Date: 02/06/24 HPI nausea/diarrhea HPI Details Patient is 68 year female came in today to talk about nausea and Patient was recently seen on of this month please refer to my previous note for details Patient has been diagnosed with adenocarcinoma She has colonoscopy scheduled of this month She also has appointment with [facility] in 2 days Patient says that she was given oxycodone by change management expert because she was having pain in her abdomen Explained to patient that oxycodone causes nausea and vomiting, if possible stopped taking that so she can start eating I have also discontinued atorvastatin and Lyrica as patient has not been taking her medication because of vomiting She is now on insulin sliding scale, long-acting insulin was stopped I have printed the medication list and handed to patient so she can go over with her specialist and see which medicine she should continue on which 1 to stop She is also on psychiatric medications that she would like to continue Patient had elevated QT interval, I did place urgent referral computer forensic examiner however I see that she still has not made appointment I have given number of Cardiology so she can book her own appointment, she is here with her MEAT PROCESSING CENTER MANAGER today who has been with patient for the past 13 years Patient is on losartan 50 mg however if she continued to lose weight we will have to readjust the medication Script for blood pressure monitor provided so that ME[employer] PROC[employer] C[employer] MANAGER can start monitoring her blood pressure Patient is also requesting a script for wheelchair, that too was printed and handed to [facility] so it can be taken to medical supply store Her blood pressure is stable today at 128/84 pulse is 86 regular and oxygen saturation is 98 on room air [facility] Medical History Depression, major, recurrent Chronic GERD Environmental allergies Diabetic neuropathy COPD, severe Osteopenia Vitamin D deficiency History of pancreatitis HLD (hyperlipidemia) HTN (hypertension) T2DM (type 2 diabetes mellitus) Surgical History Hx of hysterectomy Family History Mother CVA (cerebral vascular accident) T2DM (type 2 diabetes mellitus) Father No problems noted. Brother No problems noted. Brother No problems noted. Brother No problems noted. Sister No problems noted. Sister No problems noted. Sister No problems noted. Sister No problems noted. Daughter No problems noted. Daughter No problems noted. Social History Housing: Apartment Alcohol intake: former Patient Tobacco Use Status: Former Tobacco user Cigarette Packs Per Day: 1 Years Smoked: 40 Packs Per Year: 40 e-Cigarette/Vaping Use: Never Used service: No Current occupational status: retired Cognitive needs: No Hearing needs: No Vision needs: Yes Questionnaire Thrive Questionnaire Date Thrive assessed: 03/01/23 VIRGILIO-7 AMB Questionnaire VIRGILIO-7 Date VIRGILIO - 7 assessed: 03/01/23 Source: Developed by Drs. Nael Connelly, Jade Hinojosa, Lance Lizarraga and colleagues, with an educational kush from [employer]. Review of Systems Const Denies fever(s) ENT Denies epistaxis and Denies nasal discharge Card Denies chest pain Resp Denies chest congestion, Denies cough and Denies hemoptysis Skin/Breast Denies rash Neuro Reports no additional complaints Psych Reports no additional complaints Endo Reports no additional complaints Physical exam (Primary Care) Vital Signs: Last Vital Signs Pulse 86 02/21/24 11:14 BP 128/84 02/21/24 11:14 Pulse Ox 98 02/21/24 11:14 Oxygen Delivery Method Room Air 02/21/24 11:14 BMI result Body Mass Index 24.1 Tobacco/Smoking Status: Tobacco use Status Tobacco use date assessed 02/06/24 02/21/24 11:16 Patient Tobacco Use Status Former Tobacco user 02/21/24 11:16 e-Cigarette/Vaping Use Never Used 02/21/24 11:16 Thrive Assessment: Date of Thrive Assessment Date Thrive assessed 03/01/23 02/21/24 11:16 Const General: cooperative, comfortable and no acute distress Orientation/consciousness: patient oriented x3 HENMT Head: Yes normocephalic Eyes General: appearance normal, both eyes and all related structures Resp Effort & Inspection: normal respiratory effort, no cough and no stridor Cardio Rhythm: regular rhythm Heart sounds: S1 normal heart sound present and S2 normal heart sound present Skin General skin exam: turgor normal Neuro General: patient oriented x3, tone normal and moves all extremities Extrem Right lower extremity: no edema Left lower extremity: no edema Assessment and Plan Assessment & Plan (1) Adenocarcinoma: Code(s): C80.1 - Malignant (primary) neoplasm, unspecified (2) HTN (hypertension): Code(s): I10 - Essential (primary) hypertension Qualifiers: Hypertension type: primary hypertension Qualified Code(s): I10 - Essential (primary) hypertension (3) Abdominal lymphadenopathy: Code(s): R59.0 - Localized enlarged lymph nodes (4) Risk for falls: Code(s): Z91.81 - History of falling (5) Failure to thrive in adult: Code(s): R62.7 - Adult failure to thrive (6) Nausea & vomiting: Code(s): R11.2 - Nausea with vomiting, unspecified Qualifiers: Vomiting type: unspecified Qualified Code(s): R11.2 - Nausea with vomiting, unspecified (7) Medication side effect: Code(s): T88.7XXA - Unspecified adverse effect of drug or medicament, initial encounter (8) Depression, major, recurrent: Code(s): F33.9 - Major depressive disorder, recurrent, unspecified Qualifiers: Active/Remission status: in partial remission Qualified Code(s): F33.41 - Major depressive disorder, recurrent, in partial remission (9) Diabetic neuropathy: Code(s): E11.40 - Type 2 diabetes mellitus with diabetic neuropathy, unspecified Qualifiers: Diabetes mellitus complication detail: diabetic polyneuropathy Diabetes mellitus type: type 1 Qualified Code(s): E10.42 - Type 1 diabetes mellitus with diabetic polyneuropathy (10) T2DM (type 2 diabetes mellitus): Code(s): E11.9 - Type 2 diabetes mellitus without complications Qualifiers: Diabetes mellitus complication status: with hyperglycemia Diabetes mellitus technician terminal and repeater insulin use: with nursing home use Qualified Code(s): E11.65 - Type 2 diabetes mellitus with hyperglycemia; Z79.4 - penitentiary (current) use of insulin Plan Patient is 68 year female came in today to talk about nausea and Patient was recently seen on of this month please refer to my previous note for details Patient has been diagnosed with adenocarcinoma by [facility] She has colonoscopy scheduled of this month She also has appointment with [facility] in 2 days Patient says that she was given oxycodone by change management expert because she was having pain in her abdomen Explained to patient that oxycodone causes nausea and vomiting, if possible stopped taking that so she can start eating I have also discontinued atorvastatin and Lyrica as patient has not been taking her medication because of vomiting She is now on insulin sliding scale, long-acting insulin was stopped I have printed the medication list and handed to patient so she can go over with her specialist and see which medicine she should continue on which 1 to stop She is also on psychiatric medications that she would like to continue Patient had elevated QT interval, I did place urgent referral computer forensic examiner however I see that she still has not made appointment I have given number of Cardiology so she can book her own appointment, she is here with her [employer] CENTER MANAGER today who has been with patient for the past 13 years Patient is on losartan 50 mg however if she continued to lose weight we will have to readjust the medication Script for blood pressure monitor provided so that ME[employer] C[employer] MANAGER can start monitoring her blood pressure Patient is also requesting a script for wheelchair, that too was printed and handed to [facility] so it can be taken to medical supply store Her blood pressure is stable today at 128/84 pulse is 86 regular and oxygen saturation is 98 on room air 45 minute appointment [id number] with the patient and ME[employer] C[employer] MANAGER, reviewing chart Printing scripts medications, coordination of care Medications: New [Blood pressure monitor] As directed 1 ea 0RF I10 - Essential (primary) hypertension [Wheelchair] As directed 1 ea 0RF C80.1 - Malignant (primary) neoplasm, unspecified, R59.0 - Localized enlarged lymph nodes, R62.7 - Adult failure to thrive, Z91.81 - History of falling On Hold atorvastatin Hold Comment: Doctor's Order 40 mg PO DAILY 90 tabs 0RF pregabalin Hold Comment: Doctor's Order 225 mg PO BID 90 days 180 caps 0RF E11.40 - Type 2 diabetes mellitus with diabetic neuropathy, unspecified Coding Level of Care Code Est Pt Level 5 (89869) Diagnoses Adenocarcinoma C80.1 Primary hypertension I10 Hypertension type: primary hypertension Abdominal lymphadenopathy R59.0 Risk for falls Z91.81 Failure to thrive in adult R62.7 Nausea and vomiting, unspecified vomiting type R11.2 Vomiting type: unspecified Medication side effect T88.7XXA Recurrent major depressive disorder, in partial remission F33.41 Active/Remission status: in partial remission Diabetic polyneuropathy associated with type 1 diabetes mellitus E10.42 Diabetes mellitus complication detail: diabetic polyneuropathy Diabetes mellitus type: type 1 Type 2 diabetes mellitus with hyperglycemia, with long-term current use of insulin E11.65; Z79.4 Diabetes mellitus complication status: with hyperglycemia Diabetes mellitus technician terminal and repeater insulin use: with nursing home use
== END 2024-02-21 12:11 | disposition home or self-care (01) ==
LOC: HO.HMGC 11:11
PROVIDERS: PCP Internal Medicine; Visit Provider Internal Medicine
DX: E11.65 Type 2 diabetes mellitus with hyperglycemia (principal); Z79.4 Long term (current) use of insulin; C80.1 Malignant (primary) neoplasm, unspecified; F33.41 Major depressive disorder, recurrent, in partial remission; I10 Essential (primary) hypertension; R59.0 Localized enlarged lymph nodes; Z91.81 History of falling; R62.7 Adult failure to thrive; R11.2 Nausea with vomiting, unspecified; T88.7XXA Unspecified adverse effect of drug or medicament, initial encounter
CPT/HCPCS: 99215

== ENCOUNTER 2024-06-07 13:21 | Outpatient (AMB) | payer OTHER, SELFPAY ==
--- NOTE | 2024-06-07 13:24 | A.OFFPC_ITS ---
Vital Signs 06/07/24 13:25 Height 5 ft Weight 126 lb BMI 24.6 BP 126/78 Blood Pressure Location Lt brachial Position Sitting Pulse 57 Pulse Source Pulse Oximeter Pulse Oximetry (%) 100 Oxygen Delivery Method Room Air Intake Visit Reasons: Urinary tract infection Allergies lisinopril Allergy (Unknown, Verified 02/06/24 10:36) cough pravastatin Allergy (Unknown, Verified 02/06/24 10:36) muscle ache simvastatin Allergy (Unknown, Verified 02/06/24 10:36) myalgia Medication List - Last Reconciled 06/07/24 by Isabela Bautista MD aripiprazole 2 mg PO BEDTIME atorvastatin 40 mg PO DAILY [Blood pressure monitor As directed] blood sugar diagnostic (FreeStyle Lite Strips) patient to check fasting glucose three times daily blood-glucose meter (FreeStyle Lite Meter kit) Check blood sugar 3 times daily As directed bupropion HCl SR 150 mg PO BID carvedilol 12.5 mg PO BID 30 days losartan 50 mg PO DAILY 90 days meclizine 12.5 mg PO BID PRN 15 days multivitamin 1 tab PO DAILY omeprazole 20 mg PO DAILY 90 days ondansetron 8 mg PO Q12H PRN pen needle, diabetic (BD Sarina 2nd Gen Pen Needle) once a day pen needle, diabetic once a day polyethylene glycol 3350 (Miralax) 17 grams PO DAILY 90 days pregabalin 225 mg PO BID 90 days sertraline 100 mg PO QAM [shower bench As directed] Tresiba FlexTouch U-200 (insulin degludec) 50 units (0.25 mL) subcut DAILY NS Ventolin HFA 90 mcg/actuation (albuterol sulfate) 1 inh inhalation QID PRN 30 days NS walker Walker with wheels as directed [Wheelchair As directed] Tobacco use date assessed: 02/06/24 Dental Screening Dental Screen Date: 02/06/24 HPI Urinary tract infection HPI Details Dysuria frequency for the past 2 days patient wanted to be evaluated for urinary tract infection UA does not show any signs of infection However since she is symptomatic I have sent Macrobid for 3 days She is also having nasal congestion and is requesting nasal spray PFSH Medical History Depression, major, recurrent Chronic GERD Environmental allergies Diabetic neuropathy COPD, severe Osteopenia Vitamin D deficiency History of pancreatitis HLD (hyperlipidemia) HTN (hypertension) T2DM (type 2 diabetes mellitus) Surgical History Hx of hysterectomy Family History Mother CVA (cerebral vascular accident) T2DM (type 2 diabetes mellitus) Father No problems noted. Brother No problems noted. Brother No problems noted. Brother No problems noted. Sister No problems noted. Sister No problems noted. Sister No problems noted. Sister No problems noted. Daughter No problems noted. Daughter No problems noted. Social History Housing: Apartment Alcohol intake: former Patient Tobacco Use Status: Former Tobacco user Cigarette Packs Per Day: 1 Years Smoked: 40 e-Cigarette/Vaping Use: Never Used service: No Current occupational status: retired Cognitive needs: No Hearing needs: No Vision needs: Yes Questionnaire PHQ-9 Over the last 2 weeks, how often have you been bothered by any of the following problems? 1. Little interest or pleasure in doing things: several days 2. Feeling down, depressed, or hopeless: several days 3. Trouble falling or staying asleep, or sleeping too much: several days 4. Feeling tired or having little energy: several days 5. Poor appetite or overeating: several days 6. Feeling bad about yourself - or that you are a failure or have let yourself or your family down: several days 7. Trouble concentrating on things, such as reading the newspaper or watching te levision: several days 8. Moving or speaking so slowly that other people could have noticed. Or the opposite - being so fidgety or restless that you have been moving around a lot more than usual: not at all 9. Thoughts that you would be better off or of hurting yourself in some way: not at all Total score: 7 Depression Screening Interpretation: Negative Depression Screening Done: Yes 60608 - PHQ-9 Billing: Yes Source: Developed by Drs. Nael Connelly, Jade Hinojosa, Lance Lizarraga and colleagues, with an educational kush from [employer]. Thrive Questionnaire Date Thrive assessed: 03/01/23 I am a: Patient What is your living situation today?: I have a steady place to live Within the past 12 months, did the food you bought not last and you didn't have the money to get more?: I choose not to answer this question Within the past 12 months, did you worry whether your food would run out before you got money to buy more?: I choose not to answer this question Do you have trouble paying for medicines?: No Do you have trouble getting transportation to medical appointments?: No Do you have trouble paying your heating and electricity bill?: No Do you have trouble taking care of your child, family member or friend?: No Do you have trouble with day-to-day activities such as bathing, preparing meals, shopping, managing finances, etc.?: Yes Are you currently unemployed and looking for a job?: No Are you interested in more education?: No Please select the resources that you would like help with: None Currently or been in a relationship where the following occur: I choose not to answer THRIVE Score: 0 AUDIT C Alcohol Use Questionnaire (AUDIT-C) 1. How often do you have a drink containing alcohol?: Never Total Score: 0 VIRGILIO-7 AMB Questionnaire VIRGILIO-7 Date VIRGILIO - 7 assessed: 03/01/23 Feeling nervous, anxious, or on edge: 0 = Not at all Not being able to stop or control worryin = Nearly every day Worrying too much about different things: 2 = More than half the days Trouble relaxin = Several days Being so restless that it is hard to sit still: 0 = Not at all Becoming easily annoyed or irritable: 0 = Not at all Feeling afraid as if something awful might happen: 0 = Not at all Total VIRGILIO-7 score (0-4 normal; 5-9 mild; 10-14 moderate; 15-21 severe): 6 Source: Developed by Drs. Nael Connelly, Jade Hinojosa, Lance Lizarraga and colleagues, with an educational kush from [employer]. Review of Systems Const All systems reviewed & are unremarkable except as noted in HPI and below Physical exam (Primary Care) Vital Signs: Last Vital Signs Pulse 57 06/07/24 13:25 BP 126/78 06/07/24 13:25 Pulse Ox 100 06/07/24 13:25 Oxygen Delivery Method Room Air 06/07/24 13:25 BMI result Body Mass Index 24.6 Tobacco/Smoking Status: Tobacco use Status Tobacco use date assessed 02/06/24 06/07/24 13:26 Patient Tobacco Use Status Former Tobacco user 06/07/24 13:26 e-Cigarette/Vaping Use Never Used 06/07/24 13:26 PHQ-9: PHQ-9 Score PHQ-9: Total score 7 06/07/24 13:26 Depression Screening Interpretation: Negative Thrive Assessment: Date of Thrive Assessment Date Thrive assessed 03/01/23 06/07/24 13:26 Currently or been in a relationship where the following occur: I choose not to answer Const General: no acute distress Orientation/consciousness: patient oriented x3 Eyes General: appearance normal, both eyes and all related structures Resp Effort & Inspection: normal respiratory effort and able to speak in complete sentences Auscultation: clear to auscultation bilaterally GI Other: Mild suprapubic discomfort with pressure General: Yes no CVA tenderness Back/Spine/Pelvis Back: no CVA tenderness Neuro General: patient oriented x3 Psych Mental Status: mental status grossly normal Coding Level of Care Code Est Pt Level 3 (19975) Diagnoses Dysuria R30.0 Nasal congestion R09.81 Additional Codes PHQ-9 - 60492 - PHQ-9 Billing: Yes ([id number]) Assessment & Plan Assessment & Plan (1) Dysuria: Code(s): R30.0 - Dysuria Category: Medical (2) Nasal congestion: Code(s): R09.81 - Nasal congestion Category: Medical Plan Dysuria frequency for the past 2 days patient wanted to be evaluated for urinary tract infection UA does not show any signs of infection However since she is symptomatic I have sent Macrobid for 3 days She is also having nasal congestion and is requesting nasal spray Medications: New nitrofurantoin monohyd/m-cryst 100 mg (Macrobid) must administer with a meal/food 100 mg PO Q12H 3 days 6 caps 0RF fluticasone propionate 50 mcg/actuation (Flonase Allergy Relief) administer into each nostril 1 spray intranasal DAILY 16 grams 0RF
[2024-06-07 13:25] VITALS: BP 126/78; PULSE 57; O2SAT 100; BMI 24.6
== END 2024-06-07 14:04 | disposition home or self-care (01) ==
PROVIDERS: PCP Internal Medicine; Visit Provider Internal Medicine
DX: R30.0 Dysuria (principal); R09.81 Nasal congestion

== ENCOUNTER → 2024-06-07 13:21 | Outpatient (BNVA) | payer OTHER, SELFPAY | PROVIDERS: PCP Internal Medicine; Visit Provider Internal Medicine | DX: R30.0 Dysuria (principal); R09.81 Nasal congestion | CPT/HCPCS: 96127; 99212 ==